=== PATIENT | female | born 1980 | race Asian ===

== ENCOUNTER 2016-10-25 12:53 | Inpatient (IN) | payer OTHER ==
[2016-10-24 14:16] VITALS: BMI 36.9
[2016-10-25] VITALS (15 sets, daily range): BP systolic 99–124; BP diastolic 46–71; PULSE 90–108; RESP 10–23; Ht 162.6 cm; Wt 88.0 kg
[~2016-10-25] VITALS: Ht 162.6 cm; Wt 88.0 kg
[~2016-10-25 12:53] MED LIST: CEFAZOLIN 1 GM INJ ONE; CEFAZOLIN 1 GM/50 ML (PMX) 50 ML IVPB SCH; CEFAZOLIN 2 GM/50 ML (PMX) 50 ML IVPB SCH; D5-NS + KCL 20 MEQ 1,000 ML IV SCH; LISI10TA2 PO; Metronidazole 500 MG in NS 100 ML IVPB SCH; SIMV5TAB50 PO
[2016-10-25] MEDS ORDERED: VASOPRESSIN 20 UNITS INJ ONE (14:35)
[2016-10-25] MEDS ORDERED: METHYLENE BLUE 10 MG/ML VIAL ONE (14:35)
--- NOTE | 2016-10-25 14:51 | HP ---
Date/Time of Note Date/Time of Note DATE: 10/25/16 TIME: 14:50 Assessment/Plan VTE Prophylaxis VTE Prophylaxis Intervention: SCD's Lines/Catheters IV Catheter Type (from Nrs): Peripheral IV HPI/ROS Admit Date/Time Admit Date/Time Oct 25, 2016 at 12:53 ROS Janeth Quach M.D> [facility] History and Physical Examination Kyra Noriega Oct 25, 2016 Age:36 :1980 Physicians: Russian Language Professor Leak Inspector Oncologist Referring MD: Ben Christie History of the Present Illness: This is a 36 female with a Atypical hyperplasia suggestive of Adenocarcinoma ,Grade 1 recently diagnosed by d/c endometrial biopsy. Medical history/ROS: all other systems unremarkable. G 2 P 3 Ab 0 Preg # 1 (twins) Preg # 2 Surgical history: CS x1. Medications: 10/08/16 Flagyl 250 mg tablet 1 tablet by mouth as directed 1 po qd x 2 days simeon 10/08/16 Golytely 236 gram-22.74 gram-6.74 gram-5.86 gram oral solution 1 mL by mouth as directed begin bowel prep at 10am 10/08/16 Levaquin 250 mg tablet 1 tablet by mouth as directed 1 po qd x 2 days simeon 08/15/16 lisinopril 10 mg tablet 1 tablet by mouth DAILY 10/08/16 [place] 5 mg-325 mg tablet 1 tablet by mouth Q8h SEE ATTACHED HARD COPY RX 08/15/16 simvastatin 20 mg tablet 1 tablet by mouth DAILY gardisil Colonoscopy Allergies: No active allergies recorded Family History: Noncontributory Social History: Noncontributory Review of Systems: Negative except for above noted Physical Examination Vitals (10/21/2016): Weight 198, Height 63.25, BP 120/80, BMI 35.1. General: Alert. HEENT: Pupils are equal, round, reactive to light and accommodation. Neck: Supple with no masses of lymphadenopathy. Breast: Deferred due to recent examination and responsibility of primary care physician. Chest: Clear to auscultation and percussion with no rales, ronchi, or wheeze. Heart: Normal rhythm with no murmur. Abdominal exam: nontender, nondistended, no masses, no ascites. location: N/A Pelvic exam: Uterus enlarged and globular, no masses or cul-de-sac nodularity noted Rectal: confirmatory with pelvic exam. Neurological: Grossly intact Assessment: endomtrial cancer stage to be determined Plan: TLH possible USO or BSO and sentinel LND possible lapartotomy. All risks and benefits of this procedure have been discussed in detail with the patient, as well as alternative treatment strategies and their implications. The patient is aware that there is some possibility of a blood transfusion and its associated risks and benefits. She wishes to proceed and gives her informed consent. Janeth Quach M.D. PMH/Family/Social Social History Smoking Status: Never smoker Exam/Review of Systems Vital Signs Vitals Vital Signs Date Time Temp Pulse Resp B/P Pulse Ox O2 Delivery O2 Flow Rate FiO2 10/25/16 13:59 98.2 95 20 124/71 100 Medications Medications Current Medications Potassium Chloride/Dextrose/ Sod Cl 1,000 ml @ 100 mls/hr Q10H IV ; Start 10/25 at 07:00; Stop 10/25/16 at 16:59 Metronidazole 100 ml @ 100 mls/hr PREOP IVPB ; Start 10/25/16 at 07:00; Stop at 15:00 Cefazolin Sodium/ Dextrose (Ancef 2 Gm/50 ml (Pmx)) 50 ml @ 100 mls/hr PREOP IVPB ; Start 10/25/16 at 07:00; Stop 10/25/16 at 15:00 JANETH QUACH MD Oct 25, 2016 14:51
--- NOTE | 2016-10-25 14:52 | HPN ---
Date/Time of Note Date/Time of Note DATE: 10/25/16 TIME: 14:51 Interval H&P Admission Note Pt. seen H&P reviewed: Systems changes noted below JANETH QUACH MD Oct 25, 2016 14:52
[2016-10-25] MEDS ORDERED: PROPOFOL 100 ML ONE (14:54)
[2016-10-25] MEDS ORDERED: ROCURONIUM 50 MG INJ ONE (14:54)
[2016-10-25] MEDS ORDERED: MIDAZOLAM 1 MG/ML 2 ML INJ ONE (14:54)
[2016-10-25] MEDS ORDERED: ROPIVACAINE 0.2% 20 ML VIAL ONE (16:16)
[2016-10-25] MEDS ORDERED: morphine SULFATE/PF (10 MG/10 ML) INJ ONE (16:16)
[2016-10-25] MEDS ORDERED: THROMBIN 5000 UNIT VIAL ONE (16:24)
[2016-10-25] MEDS ORDERED: HYDROmorphONE 1 MG/ML SYG IV PRN ×2 (18:00)
[2016-10-25] MEDS ORDERED: NALOXONE (0.4 MG/ML) INJ IV PRN (18:00)
[2016-10-25] MEDS ORDERED: hydrALAzine 20 MG INJ IV PRN (18:00)
[2016-10-25] MEDS ORDERED: NALBUPHINE HCL (10 MG/1 ML) INJ IV PRN (18:00)
[2016-10-25] MEDS ORDERED: METOCLOPRAMIDE 10 MG INJ IV PRN (18:00)
[2016-10-25] MEDS ORDERED: DIPHENHYDRAMINE 50 MG INJ IV PRN ×2 (18:00)
[2016-10-25] MEDS ORDERED: ONDANSETRON 4 MG INJ IV PRN ×3 (18:00→21:00)
[2016-10-25] MEDS ORDERED: morphine (1 MG/ML) 10ML SYRINGE IV PRN ×3 (18:00)
[2016-10-25] MEDS ORDERED: LABETALOL HCL 20MG INJ IV PRN (18:00)
[2016-10-25] MEDS ORDERED: morphine 4 MG/ML VIAL IV PRN (18:00)
[2016-10-25] MEDS ORDERED: EPHEDrine SULFATE 50 MG/5 ML SYG IV PRN (18:00)
[2016-10-25] MEDS ORDERED: HYDROmorphONE (0.2 MG/ML) 10ML SYG IV PRN ×3 (18:00)
[2016-10-25] MEDS ORDERED: morphine 2 MG INJ IV PRN ×2 (18:00→21:00)
[2016-10-25] MEDS ORDERED: MEPERIDINE 25 MG INJ IV PRN (18:00)
[2016-10-25] MEDS ORDERED: ONDANSETRON 4 MG INJ ONE (18:05)
[2016-10-25] MEDS ORDERED: METOCLOPRAMIDE 10 MG INJ ONE (18:05)
[2016-10-25] MEDS ORDERED: DEXAMETHASONE 4 MG/ML 1 ML INJ ONE (18:05)
[2016-10-25] MEDS ORDERED: NEOSTIGMINE 3 MG/3 ML SYRINGE ONE (19:04)
[2016-10-25] MEDS ORDERED: GLYCOPYRROLATE 0.4 MG INJ ONE (19:04)
[2016-10-25] MEDS ORDERED: FUROSEMIDE 20 MG INJ ONE (19:32)
[2016-10-25 20:25] LABS: ADD UMIC YES; URINE BILIRUBIN (Dip) NEGATIVE (NEGATIVE); URINE BLOOD (Dip) 2+ (NEGATIVE); URINE COLOR LT. YELLOW (YELLOW); URINE GLUCOSE (Dip) NEGATIVE (NEGATIVE); URINE KETONES (Dip) NEGATIVE (NEGATIVE); URINE LEUKOCYTE ESTERASE (Dip) NEGATIVE (NEGATIVE); URINE NITRITE (Dip) NEGATIVE (NEGATIVE); URINE TOTAL PROTEIN (Dip) NEGATIVE (NEGATIVE); URINE UROBILINOGEN (Dip) 0.2 E.U./dL (0.1-1.0)
[2016-10-25 20:37] LABS: SQUAMOUS EPITHELIAL CELL,UR RARE
[2016-10-25] MEDS: KETOROLAC 30 MG INJ IV SCH (21:00)
[2016-10-25] MEDS ORDERED: DEXTROSE 5% IV SCH (23:00)
[2016-10-25] MEDS ORDERED: POTASSIUM CHLORIDE IV SCH (23:00)
[2016-10-25] MEDS ORDERED: [UNRECOGNIZED DRUG - OTHER] IV SCH (23:00)
[2016-10-25] MEDS: CEFAZOLIN 1 GM/50 ML (PMX) 50 ML IVPB SCH (23:11)
[2016-10-26] MEDS: KETOROLAC 30 MG INJ IV SCH ×4 (03:00→20:42)
[2016-10-26] MEDS: HYDROCODONE/APAP (5/325) TAB PO PRN ×2 (05:01→14:13)
[2016-10-26 05:33] LABS: ADD SCAN DIFF NO
[2016-10-26 05:52] LABS: BASOPHILS % 0.1 % (0.0-2.0); HEMATOCRIT 38.4 % (37.0-47.0); HEMOGLOBIN 12.1 g/dl (12.0-16.0); LYMPHOCYTES # 1.9 10^3/ul (0.8-2.9); LYMPHOCYTES % 11.9 % (15.0-51.0); MEAN CORPUSCULAR HEMOGLOBIN 26.4 pg (29.0-33.0); MEAN CORPUSCULAR HGB CONC 31.5 g/dl (32.0-37.0); MEAN CORPUSCULAR VOLUME 83.7 fl (82.0-101.0); MEAN PLATELET VOLUME 10.4 fl (7.4-10.4); MONOCYTE # 1.1 10^3/ul (0.3-0.9); MONOCYTES % 6.7 % (0.0-11.0); NEUTROPHIL # 12.9 10^3/ul (1.6-7.5); NEUTROPHILS % 80.8 % (39.0-77.0); PLATELET COUNT 380 10^3/UL (140-415); RED BLOOD COUNT 4.59 10^6/ul (4.20-5.40); RED CELL DISTRIBUTION WIDTH 13.3 % (11.5-14.5); WHITE BLOOD COUNT 15.9 10^3/ul (4.8-10.8)
[2016-10-26] MEDS: CEFAZOLIN 1 GM/50 ML (PMX) 50 ML IVPB SCH ×2 (05:52→14:14)
[2016-10-26 05:58] LABS: CREATININE 0.65 mg/dl (0.44-1.00)
[2016-10-26 05:59] LABS: CALCIUM 8.2 mg/dl (8.4-10.2)
[2016-10-26] MEDS: [UNRECOGNIZED DRUG - OTHER] IV SCH ×2 (06:00→15:42)
[2016-10-26] MEDS: POTASSIUM CHLORIDE IV SCH ×2 (06:00→15:42)
[2016-10-26] MEDS: DEXTROSE 5% IV SCH ×2 (06:00→15:42)
[2016-10-26 07:39] VITALS: BP 113/66; RESP 16
--- NOTE | 2016-10-26 09:53 | CONS ---
DATE OF ADMISSION: 10/25/2016 DATE OF CONSULTATION: 10/26/2016 TIME: 6 A.M. REASON FOR CONSULTATION: Medical management. HISTORY OF PRESENT ILLNESS: The patient is a 36-year-old female with history of atypical hyperplasi a suggestive of adenocarcinoma, grade I, recently diagnosed via endometrial biopsy. The patient has a history of dyslipidemia, on a statin, and hypertension, on an HOLLY inhibitor. The patient was adm itted by Dr. Kimble for endometrial cancer staging. The patient had a hysterectomy with either a bilateral salpingo-oophorectomy or unilateral. Operative report is not up yet so it is unclear. Cu rralberto pathology for staging is pending. The patient is doing well postoperatively. She states th at her pain is being managed. PAST MEDICAL HISTORY: Hypertension, dyslipidemia, as well as atypical hyperplasia suggestive of ashish nocarcinoma diagnosed by endometrial biopsy. PAST SURGICAL HISTORY: Endometrial biopsy and . HOME MEDICATIONS: 1. Simvastatin. 2. Lisinopril. ALLERGIES: NO KNOWN DRUG ALLERGIES. FAMILY HISTORY: Sister with recently diagnosed breast cancer who at the age of 50 from stage IV breast cancer. Also hypertension in the family. SOCIAL HISTORY: Denies any alcohol, tobacco, or drug abuse. REVIEW OF SYSTEMS: A 12-point review of systems negative except for that stated in the HPI. The patient also states that she had swelling in her left jaw and was told that there is a fluid col lection there and states that it is improved. PHYSICAL EXAMINATION: VITAL SIGNS: Temperature is 98.7, pulse is 102, respiratory rate is 19, BP is 107/55, saturation 94 % on 2 liters. GENERAL: No acute distress, alert and oriented. HEENT: Normocephalic, atraumatic. NEK: No lymphadenopathy noted. LUNGS: Clear to auscultation. CARDIOVASCULAR: Tachycardic. ABDOMEN: Nondistended, soft. EXTREMITIES: No clubbing, cyanosis, or edema. LABORATORIES: White count 15.9, hemoglobin 7.1, platelets are 380. Chemistry within normal limits. Calcium is slightly low at 8.2. UA is within normal limits. Hemoglobin is slightly elevated at 2 +. ASSESSMENT AND PLAN: 1. Atypical hyperplasia suggestive of adenocarcinoma, now status post hysterectomy, plus possible u nilateral versus bilateral salpingo-oophorectomy. Operative note is not up yet so it is unclear if both ovaries were removed or just 1. Pathology is pending. Defer further workup for this to Dr. Juan Ramon dela cruz. Of note, the patient's sister recently from a stage IV breast cancer. It was re commended to obtain a mammogram and an analysis for BRCA 1 mutation. The patient may also benefit f rom BRCA 2 gene mutation analysis, but as she is currently being tentative for her endometrial cance r, would defer any gene mutation analysis of the BRCA 1 to her PCP and oncologist. 2. Hypertension. BP is currently low. Will hold the patient's home HOLLY inhibitor. 3. History of dyslipidemia. Will hold statin at this time. 4. Prophylaxis. SCDs. Dictated By: JESSE BREWER MD BS/NTS Conf#: [id number] DID#: [id number]
[2016-10-26 19:36] VITALS: BP 100/59; RESP 16
--- NOTE | 2016-10-26 22:40 | OPR ---
Date/Time of Note Date/Time of Note DATE: 10/26/16 TIME: 22:39 Operative Report Preoperative Diagnosis 4 OPERATIVE REPORT [facility] Name: Kyra Anderson Date: 10/25/26 Preoperative Diagnosis: Endometrial hyperplasia complex with atypia and suggestive of Grade 1 adenocarcinoma Postoperative Diagnosis: Same: final pathology pending Procedures: 1- Total laparoscopic hysterectomy with bilateral salpingectomy 2- Bilateral ureteral dissection with repositioning 3- Laparoscopic sentinel pelvic and aortic lymph node dissection 4- extensive enterolysis and cytolysis 5- Cystotomy repair Surgeon: Dr. Kimble Consultant Intern: Dr. Mercado Anaesthesia: General with regional Indications for Procedure: This 36- year old patient had endometrial hyperplasia and probable Grade 1 endometrial cancer preoperatively and after discussions of options with risks and benefits it was determined that a laparoscopic hysterectomy with bilateral salpingoophorectomy and sentinal pelvic/aortic lymph node dissection would be completed for the purposes of treatment and possibly planning additional adjuvant therapy if needed. The sentinal pelvic and LND was performed in lieu of the frozen section not being more that 80% reliable in determining presence of cancer; therefore selective staging is performed to determine postoperative management and avoid re- operation unless there is a significant contraindication. Name: Grant Anderson Intraoperative Findings and Summary of Procedure: After placing the Trocars and exploration we noted an enlarged fibroid and globular uterus with significant adhesions of the adnexia to the sidewalls and a right 3-cm tubal cyst. The TLH/BS was then performed without incident but required a ureteral dissection due to anatomic issues of the adnexia adherent to the sidewalls and an enlarged uterus after which the laparoscopic sentinel LND was performed with a finding of grossly negative nodes pathology pending. Findings and Procedure: After being prepped and draped in the usual manner the cervix was injected with methylene blue and an EEA sizer and balloon was placed against the cervix. A 5- millimeter trocar was then placed cephlad to the umbilicus without incident. Subsequently, we insufflated and placed two 12- millimeter trocars laterally and a 12 millimeter trocar suprapubically, as well as an additional 5-mm trocar cephlad to the umbilicus. At this time multiple pelvic adhesions were lysed with sharp dissection and the Omni if not adjacent to serosa as the adhesions were extensive. Subsequently we explored and noted an enlarged and globular uterus with a suggestion of fibroids and it was globular and deformed anterior , with adnexia adherent to the sidewalls due to apparent inflammation and old scar tissue with a 3-cm right paratubal cyst. Following bilateral sidewall enterolysis, the right round ligament was cauterized and transected with the Thunderbeat and the retroperitoneal space further opened parallel to the IP ligament an laterally with the same devise. The right ureter was identified and due to the aforementioned distortion from adherent adnexia and uterine enlargement was dissected laterally with the Omni and the endo-dissector throughout the length of the ureter and lateralized. After lateralizing the ureter the uterine artery was identified and clipped lateral to the ureter. Hence, the right fallopian tube was dissected from the mesentery with the Thunderbeat and a space was developed the broad ligament and the right remnant of triple pedicle was cauterized and transected with a Thunderbeat Name: Kyra Peñaloza after which the uterus was retracted medially and the bladder flap was partly developed with the Omni although it was very adherent to the fundus. We then used a 10-mm grasper placed through the 12-mm suprapubic trocar to manipulate the uterus and with the EEA sizer the uterus was retracted and left round ligament was cauterized and transected with the Thunderbeat and the retroperitoneal space further opened parallel to the IP ligament an laterally with the same devise. The left ureter was identified and due to the aforementioned distortion was dissected laterally with the Omni and the endo- dissector as done contralaterally. After lateralizing the ureter the uterine artery was identified and clipped lateral to the ureter. Subsequently, the fallopian tube was removed from the mesentery with the Thunderbeat and removed and a space was developed in the broad ligament and the left remainder of the triple pedicle was cauterized and transected with a Thunderbeat after which the uterus was retracted medially, allowing development or the bladder flap further with the Omni and blunt dissection. Subsequently, the right uterine artery was transected with a Thunderbeat perpendicular to the distal lower uterine segment and the Cardinal ligament and utero-sacral ligament were both transected with an Omni parallel to the lower uterine segment and cervix. An identical series of steps were taken on the left side. The integrity of the bladder was confirmed by instillation of methylene blue. The anterior and posterior colpotomies were accomplished with a Thunderbeat anteriorly and posteriorly, and continued around the sides with the Omni as the specimen was removed through the vagina uneventfully. The vagina was closed with interrupted 0- vicryl and continuous 2-0 v-lock suture with a fan used to retract the bladder due to the anatomic distortion. The integrity of the bladder was investigated again by instillation of methylene blue and a small 1- mm anterior central defect was noted far from the suture line, uncertain whether the bladder was thinned out due to the and scar tissue but intact until a retractor was needed for exposure or other subsequent issue despite being intact earlier. Hence, the defect was repaired with a double continuous layer of dyed 3-0 Vicryl suture used to complete the repaired without incident. The integrity of the bladder Name: Kyra Peñaloza was confirmed by instillation of methylene blue, 250 ml with no leakage at all. Subsequently a fan retractor was used for exposure and secured to the Kapil arm and all appropriate lymph node tissue adjacent to the right pelvic vessels were removed with sharp and blunt dissection, using the Gyrus bipolar cutting forceps or [facility] bipolar Omni for hemostasis and lymphostasis. The jaylen tissue was grasped and subsequently placed under tractions with the Omni and the Gyrus bipolar cutting forceps then being used for the hemostasis and lymphostasis in the process of removal. The dissection was continued to include any jaylen tissue adjacent to the common iliac vessels as well as distal aortic. The fan retractors were adjusted in that a suprapubically placed fan retracted the broad ligament and ureter with ileum while the right lateral trocar was used for a fan to retract the cecum and ascending colon allowing any discolored blue jaylen tissue adjacent to the vena cava, as well as aorto-caval nodes to be removed using identical technique. Repairer Shoe Sticks vessels were addressed with the Gyrus bipolar cutting forceps or Gyrus bipolar Omni. At this time we placed the fan retractors for contralateral exposure. Subsequently, any discolored or suspicious` lymph node tissue adjacent to the left pelvic vessles were removed with sharp and blunt dissection, the Gyrus bipolar cutting forceps or Gyrus bipolar Omni for hemostasis and lymphostasis, with a technique identical to the right side including hypogastric and obturator jaylen tissue. The dissection was continued to include jaylen tissue adjacent to the common iliac vessels. Subsequently, the fan retractors were adjusted and any blue jaylen tissue adjacent to the aorta were dissected using similar technique. After irrigating and assuring hemostasis the 12 millimeter trocars were removed and the fascia was closed with 0-vicryl using an endo-close devise. The gas was removed and the skin of all sites then closed with interrupted 5-0 Plain Gut. The EBL was 100cc and the patient tolerated the procedure well and left the OR in good condition. Janeth Kimble M.D. JANETH KIMBLE MD Oct 26, 2016 22:40
--- NOTE | 2016-10-26 22:44 | PN ---
Date/Time of Note Date/Time of Note DATE: 10/26/16 TIME: 22:40 Assessment/Plan VTE Prophylaxis VTE Prophylaxis Intervention: SCD's Lines/Catheters IV [facility]ter [facility] (from [facility] Peripheral IV Urinary Cath still in place: Yes Assessment/Plan Chief Complaint/Hosp Course endometrial hyperplasia and cancer Problems: Assessment/Plan A- doing well P- adv diet further a.m. Discussed surgery in detail Possibly discharge tomorrow Subjective 24 Hr Interval Summary Free Text/Dictation S- + flatus and marginally OOB O- Resp- clear CVS- NSR Abd- soft NT Ext- NT no edema A- doing well P- adv diet further a.m. Discussed surgery in detail Possibly discharge tomorrow Exam/Review of Systems Vital Signs Vitals Vital Signs Date Time Temp Pulse Resp B/P Pulse Ox O2 Delivery O2 Flow Rate FiO2 10/26/16 19:36 98.0 81 16 100/59 100 10/26/16 08:00 Nasal Cannula 2.0 Intake and Output 10/25/16 10/25/16 10/26/16 15:00 23:00 07:00 Intake Total 2200 ml 800 ml Output Total 1300 ml 1880 ml Balance 900 ml -1080 ml Results Result Diagram: 10/26/16 0440 10/26/16 0440 Results 24 hrs Laboratory Tests Test 10/26/16 04:40 Anion Gap 14 Basophils # 0.0 Basophils % 0.1 Blood Urea Nitrogen 8 Calcium Level 8.2 L Carbon Dioxide Level 30 Chloride Level 100 Creatinine 0.65 Eosinophils # 0.0 Eosinophils % 0.0 Glucose Level 151 Hematocrit 38.4 Hemoglobin 12.1 Lymphocytes # 1.9 Lymphocytes % 11.9 L Mean Corpuscular Hemoglobin 26.4 L Mean Corpuscular Hemoglobin Concent 31.5 L Mean Corpuscular Volume 83.7 Mean Platelet Volume 10.4 Monocytes # 1.1 H Monocytes % 6.7 Neutrophils # 12.9 H Neutrophils % 80.8 H Nucleated Red Blood Cells # 0.0 Nucleated Red Blood Cells % 0.0 Platelet Count 380 Potassium Level 4.0 Red Blood Count 4.59 Red Cell Distribution Width 13.3 Sodium Level 140 White Blood Count 15.9 H Medications Medications Current Medications Ondansetron HCl (Zofran Inj) 4 mg Q6H PRN IV NAUSEA AND/OR VOMITING; Start 07/01 at 18:00 Naloxone HCl 0.2 mg 0.2 mg Q2M PRN IV FOR RESP RATE 8 OR LESS; Start 10/25/16 at 18:00 Potassium Chloride 30 meq/ Dextrose/Lactated Ringer's 1,015 ml @ 100 mls/hr Q10H9M IV Last administered on 10/25/16 23:25; Admin Dose 100 MLS/HR; Start at 23:00; Stop 10/26/16 at 06:00 Potassium Chloride/Dextrose/ Lactated Ringer's (KCl/D5-Lr) 1,015 ml @ 60 mls/ hr [id number] IV Last administered on 10/26/16 15:42; Admin Dose 60 MLS/HR; Start 10/26/16 at 06:00 Acetaminophen/ Hydrocodone Bitart ([place] (5/325)) 1 tab Q6H PRN PO PAIN Last administered on 10/26/16 14:13; Admin Dose 1 TAB; Start 10/25/16 at 21:00 Ketorolac Tromethamine (Toradol) 30 mg Q6H IV Last administered on 10/26/16 20 :42; Admin Dose 30 MG; Start 10/25/16 at 21:00; Stop 10/27/16 at 03:01 Morphine Sulfate (morphine) 2 mg Q3H PRN IV SEVERE PAIN; Start 10/25/16 at 21: 00 Ondansetron HCl 4 mg 4 mg Q6H PRN IV NAUSEA AND/OR VOMITING; Start 10/25/16 at 21:00 Cefazolin Sodium (Ancef 1 Gm/50 ml (Pmx)) 50 ml @ 100 mls/hr Q8H IVPB Last administered on 10/26/16 14:14; Admin Dose 100 MLS/HR; Start 10/25/16 at 21:00 ; Stop 10/26/16 at 13:29 JANETH QUACH MD Oct 26, 2016 22:43
[2016-10-27] MEDS: KETOROLAC 30 MG INJ IV SCH (03:20)
[2016-10-27 06:36] LABS: BASOPHILS % 0.4 % (0.0-2.0); EOSINOPHILS # 0.1 10^3/ul (0.0-0.5); EOSINOPHILS % 0.6 % (0.0-7.0); HEMOGLOBIN 10.9 g/dl (12.0-16.0); LYMPHOCYTES # 2.5 10^3/ul (0.8-2.9); MEAN CORPUSCULAR HEMOGLOBIN 27.1 pg (29.0-33.0); MEAN CORPUSCULAR HGB CONC 33.1 g/dl (32.0-37.0); MEAN CORPUSCULAR VOLUME 81.9 fl (82.0-101.0); MEAN PLATELET VOLUME 8.9 fl (7.4-10.4); MONOCYTES % 9.1 % (0.0-11.0); NEUTROPHIL # 7.1 10^3/ul (1.6-7.5); NEUTROPHILS % 66.9 % (39.0-77.0); PLATELET COUNT 274 10^3/UL (140-440); RED BLOOD COUNT 4.03 10^6/ul (4.20-5.40); RED CELL DISTRIBUTION WIDTH 13.9 % (11.5-14.5); UNCORRECTED WBC 10.7 10^3/ul (4.8-10.8); WHITE BLOOD COUNT 10.7 10^3/ul (4.8-10.8)
[2016-10-27 06:38] LABS: CONDITION 1; LH ANALYZER COMMENTS 1
[2016-10-27 07:13] LABS: POTASSIUM 3.7 mmol/L (3.5-5.1)
[2016-10-27 07:17] LABS: CALCIUM 8.1 mg/dl (8.4-10.2)
[2016-10-27 07:27] LABS: CREATININE 0.6 mg/dl (0.44-1.00)
[2016-10-27 07:33] VITALS: BP 107/66; RESP 15
[2016-10-27] MEDS: HYDROCODONE/APAP (5/325) TAB PO PRN ×2 (09:22→15:48)
[2016-10-27] MEDS: [UNRECOGNIZED DRUG - OTHER] IV SCH (09:24)
[2016-10-27] MEDS: DEXTROSE 5% IV SCH (09:24)
[2016-10-27] MEDS: POTASSIUM CHLORIDE IV SCH (09:24)
--- NOTE | 2016-10-27 10:39 | PN ---
DATE: 10/27/2016 INTERNAL MEDICINE FOLLOWUP SUBJECTIVE: Chart reviewed. Surgical findings noted. Currently, the patient is hemodynamically st able on 2 liters O2 nasal cannula, saturating 100%. OBJECTIVE: VITAL SIGNS: Blood pressure 107/66, pulse 81, respirations 15, temperature 98.7. HEENT: Pupils are equal and reactive to light. Anicteric sclerae. NECK: Supple, no JVD noted, no cervical adenopathy noted, no carotid bruits heard. LUNGS: Fair breath sounds bilaterally. CARDIOVASCULAR: S1, S2 normal. ABDOMEN: Soft, positive bowel sounds. EXTREMITIES: No clubbing or cyanosis noted. NEUROLOGICAL: Awake. LABORATORY DATA: WBC 10.7, hemoglobin 10.9, hematocrit 33, platelets 274. Sodium 141, potassium 3. 7, chloride 101, CO2 31, BUN 6, creatinine 0.6, glucose 108. IMPRESSION: 1. Adenocarcinoma uterine status post laparoscopic hysterectomy and bilateral salpingo-oophorectomy along with ureteral diversion. 2. History of hypertension. 3. History of dyslipidemia. RECOMMENDATIONS: 1. Continue postop care. 2. Advance diet as per surgery. 3. Possible discharge planning in a.m. Dictated By: DIVINE FREEMAN MD, MA/IDALMIS Conf#: [id number] DID#: [id number]
== END 2016-10-27 18:30 | disposition home or self-care (01) | DRG 743 ==
LOC: REC 12:53 → INTOOBSV 12:53 → MS1 21:00 → OBSVTOIN 10-26 08:04 → MS1 10-26 17:39
PROC: 0UTC4ZZ Resection of Cervix, Percutaneous Endoscopic Approach (ICD-10-PCS; 2016-10-25)
PROC: 0UB74ZZ Excision of Bilateral Fallopian Tubes, Percutaneous Endoscopic Approach (ICD-10-PCS; 2016-10-25)
PROC: 07BC4ZX Excision of Pelvis Lymphatic, Percutaneous Endoscopic Approach, Diagnostic (ICD-10-PCS; 2016-10-25)
PROC: 07BD4ZX Excision of Aortic Lymphatic, Percutaneous Endoscopic Approach, Diagnostic (ICD-10-PCS; 2016-10-25)
PROC: 0TS84ZZ Reposition Bilateral Ureters, Percutaneous Endoscopic Approach (ICD-10-PCS; 2016-10-25)
PROC: 0TQB4ZZ Repair Bladder, Percutaneous Endoscopic Approach (ICD-10-PCS; 2016-10-25)
PROC: 0UT94ZZ Resection of Uterus, Percutaneous Endoscopic Approach (ICD-10-PCS; principal; 2016-10-25 14:30)
DX: N85.02 Endometrial intraepithelial neoplasia [EIN] (principal); N32.89 Other specified disorders of bladder; I10 Essential (primary) hypertension; E78.5 Hyperlipidemia, unspecified
CPT/HCPCS: 80048; 81001; 81003; 84703; 85025; 86850; 86900; 86901; 86920; 88302; 88305; 88307; 99217; J1940; G0378; J0690; J1100; J1170; J1200; J1644; J1885; J2175; J2250; J2274; J2405; J2710; J2765; J2795; J3010; J7121

== ENCOUNTER 2016-10-31 17:27 | Inpatient (IN) | payer OTHER ==
[~2016-10-31] VITALS: Ht 162.6 cm; Wt 88.6 kg
[~2016-10-31 17:27] MED LIST changes: -CEFAZOLIN 1 GM INJ ONE; -CEFAZOLIN 1 GM/50 ML (PMX) 50 ML IVPB SCH; -CEFAZOLIN 2 GM/50 ML (PMX) 50 ML IVPB SCH; -D5-NS + KCL 20 MEQ 1,000 ML IV SCH; -Metronidazole 500 MG in NS 100 ML IVPB SCH
[2016-10-31] MEDS ORDERED: SOD CHLORIDE 0.9% IV ONE (19:00)
--- NOTE | 2016-10-31 19:17 | RADRPT ---
PROCEDURE: XR Chest. CLINICAL INDICATION: Shortness of breath. TECHNIQUE: Portable AP semi erect view of the chest was obtained. COMPARISON: None. FINDINGS: The cardiomediastinal silhouette is within normal limits. The lungs are clear. There is no evidenc e for pleural effusion, pneumothorax or pulmonary vascular congestion. The osseous structures are i ntact with no evidence for acute abnormality. RPTAT:HJJR IMPRESSION: No evidence for acute intrathoracic pathology. Physician Angelita Date Time Electronically viewed and signed by Marcus Batres Physician on 10/31/2016 19:17 /
[2016-10-31] MEDS ORDERED: IBUPROFEN 800 MG TAB PO ONE (19:30)
[2016-10-31 19:38] LABS: HEMATOCRIT 36.9 % (37.0-47.0); HEMOGLOBIN 12.2 g/dl (12.0-16.0); MEAN CORPUSCULAR HEMOGLOBIN 26.8 pg (29.0-33.0); MEAN CORPUSCULAR HGB CONC 33.1 g/dl (32.0-37.0); MEAN CORPUSCULAR VOLUME 81.2 fl (82.0-101.0); MEAN PLATELET VOLUME 8.2 fl (7.4-10.4); PLATELET COUNT 370 10^3/UL (140-440); RED BLOOD COUNT 4.55 10^6/ul (4.20-5.40); RED CELL DISTRIBUTION WIDTH 14.4 % (11.5-14.5); UNCORRECTED WBC 27.4 10^3/ul (4.8-10.8); WHITE BLOOD COUNT 27.4 10^3/ul (4.8-10.8)
[2016-10-31 19:40] LABS: CONDITION 1; LH ANALYZER COMMENTS 1; SUSPECT 1
[2016-10-31 19:51] LABS: ALBUMIN 3.7 g/dl (3.3-4.9); POTASSIUM 3.4 mmol/L (3.5-5.1)
[2016-10-31 19:53] LABS: BILIRUBIN,INDIRECT 0.8 mg/dl (0-1.1); BILIRUBIN,TOTAL 0.8 mg/dl (0.2-1.3); CREATININE 0.6 mg/dl (0.44-1.00)
[2016-10-31 19:54] LABS: ALBUMIN/GLOBULIN RATIO 0.97; CALCIUM 8.6 mg/dl (8.4-10.2); TOTAL PROTEIN 7.5 g/dl (6.1-8.1)
[2016-10-31] MEDS ORDERED: IOHEXOL 350MG/ML 50 ML BTL ONE (20:22)
[2016-10-31] MEDS ORDERED: IOHEXOL 100 ML ONE (20:22)
[2016-10-31] MEDS ORDERED: SOD CHLORIDE 0.9% 100 ML ONE (20:22)
--- NOTE | 2016-10-31 20:59 | RADRPT ---
PROCEDURE: CTA Chest. CLINICAL INDICATION: Chest pain and shortness of breath TECHNIQUE: Continues 1.25 mm axial images were obtained from lung apices to the domes of diaphragm s following intravenous injection of 100 cc of Isovue 370. Images reconstructed in coronal, sagitta l, and 3-D format using maximum intensity projection technique.. The calculated dose length product (DLP) = 586.24 mGy-cm. The CTDlvol = 17.56 mGy. One or more of the following dose reduction techniq ues were used: Automated exposure control, adjustment of the mA and or KV according to patient size, or use of iterative reconstruction technique. COMPARISON: No prior studies are available for comparison. FINDINGS: Images through the pulmonary arteries demonstrates no evidence of large or central pulmonary emboli. Ascending and descending thoracic aorta are normal in caliber without aneurysmal dilatation or dis section. Heart chambers are mildly enlarged in size. There is no pericardial effusion. No patholo gically enlarged mediastinal or axillary lymph nodes are seen. There is a 2.3 cm left thyroid nodul e. Evaluation of the lung longo demonstrates no confluent pneumonia, pleural fluid, pneumothorax. No suspicious lung nodules or masses are seen. The underlying architecture of the lungs is normal. Br onchi are normal in caliber. No destructive bony lesions are seen. IMPRESSION: 1. No evidence of large or central pulmonary emboli. 2. No aortic aneurysm or dissection. 3. Lungs clear 4. 2.3 cm left lower pole thyroid nodule RPTAT: HH .Brown Cantrell MD, Date Time Electronically viewed and signed by .Brown Cantrell MD, on 10/31/2016 20:58 .W/
[2016-10-31] MEDS ORDERED: VANCOMYCIN 1 GM (PMX) 250 ML IVPB STA (21:10)
[2016-10-31] MEDS ORDERED: PIPER-TAZO 3.375 GM IV (PMX) 100 ML IVPB STA (21:10)
[2016-10-31] MEDS ORDERED: VANCOMYCIN IV PER PHARMACY XX SCH (21:30)
--- NOTE | 2016-10-31 21:52 | RADRPT ---
PROCEDURE: CT abdomen and pelvis with contrast. CLINICAL INDICATION: Fever and possible sepsis TECHNIQUE: CT scan of the abdomen and pelvis without contrast was performed on a 64-slice CT [facility] utilizing axial imaging from the lung bases through the pubis symphysis. The patient was scanned after the uneventful intravenous administration of 125 cc of Omnipaque 350 Sagittal and coronal ref ormatted images were made. CTDI vol 46.96 mGy and DLP 1421.03 mGy-cm One of the following 3 dose reduction techniques were used during this CT examination: automated exp osure control; adjustment of the mA and /or kV according to patient size; or use of iterative recons truciton technique. COMPARISON: 10/31/2016 chest x-ray FINDINGS: CT abdomen: The lung bases are remarkable for dependent discoid atelectasis. Mild cardiomegaly is present. No pericardial or pleural effusion is present. Mild diffuse fatty infiltration of the liver is present with mild hepatomegaly. The visualized spleen, pancreas, gallbladder, and bilateral adrenal glands are normal. The bilateral kidneys are normal. No evidence for hydroureteronephrosis or nephrouret erolithiasis is present. The aorta demonstrates no evidence for aneurysmal dilatation. Inflammation is noted in the retroper itoneum anterior to the aorta and extending into the pelvis. The visualized bowel demonstrates mild yuli-sigmoid inflammation. No evidence for bowel obstruction is present. No evidence for divertic ulosis or diverticulitis or appendicitis is present. No evidence for pneumoperitoneum or abdominal ascites is present. CT pelvis: Fluid is present in the pelvis in the expected location of the uterus and bilateral adnexa. This fl uid collection measures approximately 6.2 cm AP by 7.4 cm in transverse dimensions. Inflammation is present and infected seroma or abscess is not excluded. The presence of a 2.8 cm left soft tissue nodule anterior to the psoas muscle which may represent a pathologic lymph node or the left ovary. A Shrestha catheter is present in a decompressed urinary bladder which has surrounding inflammation. Mild pelvic ascites is present The surrounding osseous structures are normal. IMPRESSION: 1. Status post hysterectomy for endometrial carcinoma with pelvic fluid collection measuring 6.2 cm AP by 7.4 cm transverse with in the surgical bed. Differential to include infected seroma, abscess , or hematoma. Recommend correlation with the patient's white blood cell count and exam. 2. Mild cardiomegaly 3. Mild hepatomegaly and diffuse fatty infiltration of the liver 4. Shrestha catheter is present in a decompressed urinary bladder 5. 2.8 cm enhancing soft tissue pathologic lymph node, left ovary or mass. A call report was made to BHANU Cabrera PA-C at 10/31/2016 9:45:13 PM following the completion of the examination by the undersigned. RPTAT: HDC .Ayla óLpez MD, MD Date Time Electronically viewed and signed by .Ayla López MD, on 10/31/2016 21:52 .C/
[2016-10-31] MEDS ORDERED: PIPER-TAZO 3.375 GM IV (PMX) 100 ML IVPB ONE (22:00)
[2016-10-31 22:02] LABS: LYMPHOCYTES # 2.2 10^3/ul (0.8-2.9); MONOCYTE # 2.7 10^3/ul (0.3-0.9); NEUTROPHIL # 22.5 10^3/ul (1.6-7.5); PLATELET ESTIMATE PLT APPEAR ADEQUATE
[2016-10-31] MEDS ORDERED: ACETAMINOPHEN 325 MG TAB PO PRN (22:30)
[2016-10-31] MEDS ORDERED: ONDANSETRON 4 MG INJ IV PRN (22:30)
--- NOTE | 2016-10-31 22:48 | QN ---
Documentation Comment I have seen and evaluated the patient along with the PA and/or NUTRITION ASSISTANT provider. I agree with the evaluation and plan of care. Please see their documentation for full ER course and evaluation. In short: The patient is postop approximately 1 week status post SAMPLE BOX [employer]KER surgery. The patient presents with fever and abdominal pain. She also describes mild shortness of breath but no pleuritic pain, no calf swelling. Her SAMPLE BOX MAKER is Dr. Kimble who would like the patient admitted to the hospitalist team. On exam: The patient has a slightly protuberant abdomen with mild diffuse tenderness, tachycardia and warm to touch. Assessment and plan: The patient has Sirs criteria with source consistent with sepsis. However she has no evidence of severe sepsis. No evidence of hypotension or endorgan dysfunction, normal lactic acid. Her CT is documented below and shows evidence of intra-abdominal abscess. She was given a 30/kg bolus of saline and given vancomycin and Zosyn. Direct supervision of care with the PA was performed. The patient is otherwise well-appearing and stable for medical surgical floor. Dr. Kimble notified. He requests [facility] which has been relayed to the admitting team. At this time the patient is stable but requires inpatient hospitalization for IV antibiotics, consider IR drainage versus surgical drainage. Accepting care team and consultations: I discussed the current laboratory data, diagnostic imaging and emergency care provided. Admitting team: Dr. Linares Admitting team indication: Insurance directed Consulting services: SAMPLE BOX MAKER Dr. Kimble Diagnostic impression: Sepsis Intra-abdominal abscess Postoperative abscess AYDIN TOLBERT MD Oct 31, 2016 22:48
[2016-10-31 22:57] LABS: ADD UMIC YES; URINE BILIRUBIN (Dip) NEGATIVE (NEGATIVE); URINE BLOOD (Dip) 3+ (NEGATIVE); URINE GLUCOSE (Dip) NEGATIVE (NEGATIVE); URINE KETONES (Dip) NEGATIVE (NEGATIVE); URINE LEUKOCYTE ESTERASE (Dip) NEGATIVE (NEGATIVE); URINE NITRITE (Dip) NEGATIVE (NEGATIVE); URINE TOTAL PROTEIN (Dip) NEGATIVE (NEGATIVE); URINE UROBILINOGEN (Dip) 0.2 E.U./dL (0.1-1.0)
[2016-10-31 23:02] LABS: URINE COLOR PALE PINK (YELLOW)
[2016-10-31 23:15] LABS: SQUAMOUS EPITHELIAL CELL,UR RARE; URINE RBCS >50 /HPF (0)
[2016-10-31 23:16] LABS: BACTERIA,URINE RARE
--- NOTE | 2016-11-01 00:54 | ERA ---
ER Documentation Chief Complaint Date/Time DATE: 11/01/16 TIME: 00:45 Chief Complaint abd pain, fever, has indwelling cath, s/p recent surgery HPI 36-year-old female who is a presents to the ED with a past medical history of grade 1 adenocarcinoma and hypertension status post total hysterectomy presents to the ED complaining of a fever and chills that started last night. Patient saw Dr. Kimble, her WET PAN MIXER surgeon earlier today and was sent here due to her shortness of breath. States that she started to experience shortness of breath last night however denies any chest pain, pleuritic chest pain, dyspnea on exertion. States that she also has a catheter for 1 week due to a puncture of her bladder that was noted from a previous surgery, in [address] Kimble fixed during this recent surgery. States that she has been taking hydrocodone and 2 unknown names of antibiotics that was prescribed by Dr. Kimble. 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 Denies any nausea, vomiting, diarrhea, flank pain, dysuria, urgency, frequency, hematuria. States that her last menses was on September 29, 2016. ROS All systems reviewed and are negative except as per history of present illness. Medications Home Meds Reported Medications Simvastatin* (Simvastatin*) 5 Mg Tablet, 20 MG PO QHS, #30 TAB 10/24/16 Lisinopril* (Lisinopril*) 10 Mg Tablet, 10 MG PO DAILY, #30 TAB 10/24/16 Allergies Allergies: Coded Allergies: No Known Allergy (Unverified , 10/24/16) PMhx/Soc History of Surgery: Yes (CSECTION) Anesthesia Reaction: No Hx Neurological Disorder: No Hx Respiratory Disorders: No Hx Cardiac Disorders: Yes (HYPERTENSION AND HYPERLIPIDEMIA) Hx Psychiatric Problems: No Hx Miscellaneous Medical Probl: No Hx Alcohol Use: No Hx Substance Use: No Hx Tobacco Use: No Physical Exam Vitals Temp 102.3 Pulse 115 Resp 20 SBP 117 DBP 64 O2 Sat 99 Physical Exam Const: [id number], well-nourished. In no acute distress. Head: Atraumatic, normocephalic Eyes: Normal Conjunctiva without injection. No purulent discharge. ENT: Normal external ear, nose. Moist oropharynx without tonsillar exudates. Non -erythematous pharynx. Uvula midline. No drooling. No trismus. Neck: No cervical midline tenderness. Full range of motion. No meningismus. No cervical lymphadenopathy. No JVD. Resp: Clear to auscultation bilaterally. No wheezing, rhonchi, rales, or crackles. No accessory muscle use. No retractions. Cardio: Regular rate and rhythm. No murmurs, rubs or gallops. Abd: Protuberant abdomen with mild diffuse tenderness. Normal bowel sounds. Various well-healing surgical lacerations with tiffany noted with no signs of erythema, edema, fluctuance or induration. No palpable masses. No rebound tenderness. No guarding. Negative McBurney's point. Negative psoas sign. Negative obturator sign. Skin: No petechiae or rashes Back: No midline tenderness. No CVA tenderness. Ext: No cyanosis, or edema. Neur: Awake and alert. Normal gait. Normal coordination. Psych: Normal Mood and Affect Result Diagram: 11/06/16 0450 11/06/16 0450 Results 24 hrs Laboratory Tests Test 10/31/16 19:25 10/31/16 21:00 Alanine Aminotransferase (ALT/SGPT) 46IU/L Albumin 3.7g/dl Albumin/Globulin Ratio 0.97 Alkaline Phosphatase 86IU/L Anion Gap 16 Aspartate Amino Transf (AST/SGOT) 34IU/L Blood Morphology Comment Blood Urea Nitrogen 7mg/dl Calcium Level 8.6mg/dl Carbon Dioxide Level 23mmol/L Chloride Level 101mmol/L Creatinine 0.60mg/dl Direct Bilirubin 0.00mg/dl Giant Platelets 1+ Globulin 3.80g/dl Glucose Level 124mg/dl Hematocrit 36.9% Hemoglobin 12.2g/dl Indirect Bilirubin 0.8mg/dl Lactic Acid Level 1.0mmol/L 0.8mmol/L Lipase 24U/L Lymphocytes # 2.210^3/ul Lymphocytes % 8.0% Mean Corpuscular Hemoglobin 26.8pg Mean Corpuscular Hemoglobin Concent 33.1g/dl Mean Corpuscular Volume 81.2fl Mean Platelet Volume 8.2fl Monocytes # 2.710^3/ul Monocytes % 10.0% Neutrophils # 22.510^3/ul Neutrophils % 82.0% Platelet Count 40572^3/UL Platelet Estimate PLT APPEAR ADEQUATE Potassium Level 3.4mmol/L Red Blood Count 4.5510^6/ul Red Cell Distribution Width 14.4% Sodium Level 137mmol/L Total Bilirubin 0.8mg/dl Total Protein 7.5g/dl White Blood Count 27.410^3/ul Current Medications Medications (Trade) Dose Ordered Sig/Checo Route PRN Reason Start Time Stop Time Status Last Admin Dose Admin Sodium Chloride (NS) 2,570 ml @ 2,570 mls/hr BOLUS X1 ONCE IV 10/31/16 19:00 10/31/16 19:59 DC 10/31/16 19:32 Ibuprofen (Motrin) 800 mg ONCE ONCE PO 10/31/16 19:30 10/31/16 19:31 DC 10/31/16 19:33 IV Flush 10 ml 10 ml STK-MED ONCE .ROUTE 10/31/16 20:22 10/31/16 20:23 DC 10/31/16 20:49 Sodium Chloride 100 ml @ ud STK-MED ONCE .ROUTE 10/31/16 20:22 10/31/16 20:23 DC 10/31/16 20:49 Iohexol (Omnipaque) 100 ml @ ud STK-MED ONCE .ROUTE 10/31/16 20:22 10/31/16 20:23 DC 10/31/16 20:49 Iohexol (Omnipaque 350mg/ ml) 50 ml STK-MED ONCE .ROUTE 10/31/16 20:22 10/31/16 20:23 DC 10/31/16 20:49 Vancomycin HCl VANCOMYCIN PER PHARM... PER PROTOCOL XX 10/31/16 21:30 Piperacillin Sod/ Tazobactam Sod 100 ml @ 200 mls/hr Q8 ONCE IVPB 10/31/16 22:00 10/31/16 22:29 DC Vancomycin HCl 250 ml @ 125 mls/hr ONCE STAT IVPB 10/31/16 21:10 10/31/16 23:09 DC 10/31/16 22:55 Piperacillin Sod/ Tazobactam Sod (Zosyn 3.375gm/ 100 ml (Pmx)) 100 ml @ 200 mls/hr ONCE STAT IVPB 10/31/16 21:10 10/31/16 21:39 DC 10/31/16 21:25 Procedures/MDM This is a 36-year-old female with a past medical history of grade 1 adenocarcinoma endometrial hyperplasia and hypertension is a presents to the ED complaining of fever and tachycardia associated with shortness of breath , chills and slight abdominal pain that started last night. Patient only has a fever of 102.3 and is tachycardic at 115. Patient qualifies for sirs criteria with a consistent source of sepsis. This case was discussed with my supervising physician, Dr. Rod who also evaluated patient at this time. We both agree that patient should receive the sepsis workup occluding a CT of the abdomen and pelvis with contrast. Dr. Kimble also wanted to rule out a pulmonary embolism due to patient's shortness of breath. A CT PA was ordered to further evaluate patient. Her WET PAN MIXER is Dr. Kimble who would like the patient admitted to the hospitalist team. Patient denied wanting any pain medicines at this time. 30 ml/kg NS bolus Completed Initial Lactate: [normal] Repeat Lactate x 2 [normal] PROCEDURE: CT abdomen and pelvis with contrast. CLINICAL INDICATION: Fever and possible sepsis TECHNIQUE: CT scan of the abdomen and pelvis without contrast was performed on a 64-slice CT scanner utilizing axial imaging from the lung bases through the pubis symphysis. The patient was scanned after the uneventful intravenous administration of 125 cc of Omnipaque 350 Sagittal and coronal reformatted images were made. CTDI vol 46.96 mGy and DLP 1421.03 mGy-cm One of the following 3 dose reduction techniques were used during this CT examination: automated exposure control; adjustment of the mA and /or kV according to patient size; or use of iterative reconstruciton technique. COMPARISON: 10/31/2016 chest x-ray FINDINGS: CT abdomen: The lung bases are remarkable for dependent discoid atelectasis. Mild cardiomegaly is present. No pericardial or pleural effusion is present. Mild diffuse fatty infiltration of the liver is present with mild hepatomegaly. The visualized spleen, pancreas, gallbladder, and bilateral adrenal glands are normal. The bilateral kidneys are normal. No evidence for hydroureteronephrosis or nephroureterolithiasis is present. The aorta demonstrates no evidence for aneurysmal dilatation. Inflammation is noted in the retroperitoneum anterior to the aorta and extending into the pelvis. The visualized bowel demonstrates mild yuli-sigmoid inflammation. No evidence for bowel obstruction is present. No evidence for diverticulosis or diverticulitis or appendicitis is present. No evidence for pneumoperitoneum or abdominal ascites is present. CT pelvis: Fluid is present in the pelvis in the expected location of the uterus and bilateral adnexa. This fluid collection measures approximately 6.2 cm AP by 7.4 cm in transverse dimensions. Inflammation is present and infected seroma or abscess is not excluded. The presence of a 2.8 cm left soft tissue nodule anterior to the psoas muscle which may represent a pathologic lymph node or the left ovary. A Shrestha catheter is present in a decompressed urinary bladder which has surrounding inflammation. Mild pelvic ascites is present The surrounding osseous structures are normal. IMPRESSION: 1. Status post hysterectomy for endometrial carcinoma with pelvic fluid collection measuring 6.2 cm AP by 7.4 cm transverse with in the surgical bed. Differential to include infected seroma, abscess, or hematoma. Recommend correlation with the patient's white blood cell count and exam. 2. Mild cardiomegaly 3. Mild hepatomegaly and diffuse fatty infiltration of the liver 4. Shrestha catheter is present in a decompressed urinary bladder 5. 2.8 cm enhancing soft tissue pathologic lymph node, left ovary or mass. A call report was made to BHANU Cabrera PA-C at 10/31/2016 9:45:13 PM following the completion of the examination by the undersigned. PROCEDURE: CTA Chest. CLINICAL INDICATION: Chest pain and shortness of breath TECHNIQUE: Continues 1.25 mm axial images were obtained from lung apices to the domes of diaphragms following intravenous injection of 100 cc of Isovue 370. Images reconstructed in coronal, sagittal, and 3-D format using maximum intensity projection technique.. The calculated dose length product (DLP) = 586.24 mGy-cm. The CTDlvol = 17.56 mGy. One or more of the following dose reduction techniques were used: Automated exposure control, adjustment of the mA and or KV according to patient size, or use of iterative reconstruction technique. COMPARISON: No prior studies are available for comparison. FINDINGS: Images through the pulmonary arteries demonstrates no evidence of large or central pulmonary emboli. Ascending and descending thoracic aorta are normal in caliber without aneurysmal dilatation or dissection. Heart chambers are mildly enlarged in size. There is no pericardial effusion. No pathologically enlarged mediastinal or axillary lymph nodes are seen. There is a 2.3 cm left thyroid nodule. Evaluation of the lung longo demonstrates no confluent pneumonia, pleural fluid , pneumothorax. No suspicious lung nodules or masses are seen. The underlying architecture of the lungs is normal. Bronchi are normal in caliber. No destructive bony lesions are seen. IMPRESSION: 1. No evidence of large or central pulmonary emboli. 2. No aortic aneurysm or dissection. 3. Lungs clear 4. 2.3 cm left lower pole thyroid nodule PROCEDURE: XR Chest. CLINICAL INDICATION: Shortness of breath. TECHNIQUE: Portable AP semi erect view of the chest was obtained. COMPARISON: None. FINDINGS: The cardiomediastinal silhouette is within normal limits. The lungs are clear. There is no evidence for pleural effusion, pneumothorax or pulmonary vascular congestion. The osseous structures are intact with no evidence for acute abnormality. RPTAT:HJJR IMPRESSION: No evidence for acute intrathoracic pathology. Status post hysterectomy for endometrial carcinoma with pelvic fluid collection measuring 6.2 cm AP by 7.4 cm transverse with in the surgical bed. Differential to include infected seroma, abscess, or hematoma seen on CT ob abdomen and pelvis with contrast. Diagnostic impression: Sepsis Intra-abdominal abscess Postoperative abscess No evidence of severe sepsis. No evidence of hypotension or end organ dysfunction, normal lactic acid. She was given a 30/kg bolus of saline and given Vancomycin and Zosyn. No evidence of pneumonia, AAA, aortic dissection, pleural effusion, or pulmonary embolism. No evidence of UTI. Dr. Rod notified Dr. Kimble. He requests [facility] which has been relayed to the admitting team. The patient will be admitted for careful hydration, antibiotic therapy, and infectious source control. Patient is stable but requires inpatient hospitalization for IV antibiotics, consider IR drainage versus surgical drainage. Departure Diagnosis: Primary Impression: Postoperative intra-abdominal abscess Qualified Code: T81.4XXA - Postoperative intra-abdominal abscess, initial encounter Condition: Stable BAILEY DRUMMOND PA-C Nov 01, 2016 00:54 pelvis. The visualized bowel demonstrates mild yuli-sigmoid inflammation. No evidence for bowel obstruction is present. No evidence for diverticulosis or diverticulitis or appendicitis is present. No evidence for pneumoperitoneum or abdominal ascites is present. CT pelvis: Fluid is present in the pelvis in the expected location of the uterus and bilateral adnexa. This fluid collection measures approximately 6.2 cm AP by 7.4 cm in transverse dimensions. Inflammation is present and infected seroma or abscess is not excluded. The presence of a 2.8 cm left soft tissue nodule anterior to the psoas muscle which may represent a pathologic lymph node or the left ovary. A Shrestha catheter is present in a decompressed urinary bladder which has surrounding inflammation. Mild pelvic ascites is present The surrounding osseous structures are normal. IMPRESSION: 1. Status post hysterectomy for endometrial carcinoma with pelvic fluid collection measuring 6.2 cm AP by 7.4 cm transverse with in the surgical bed. Differential to include infected seroma, abscess, or hematoma. Recommend correlation with the patient's white blood cell count and exam. 2. Mild cardiomegaly 3. Mild hepatomegaly and diffuse fatty infiltration of the liver 4. Shrestha catheter is present in a decompressed urinary bladder 5. 2.8 cm enhancing soft tissue pathologic lymph node, left ovary or mass. A call report was made to BHANU Cabrera PA-C at 10/31/2016 9:45:13 PM following the completion of the examination by the undersigned. PROCEDURE: CTA Chest. CLINICAL INDICATION: Chest pain and shortness of breath TECHNIQUE: Continues 1.25 mm axial images were obtained from lung apices to the domes of diaphragms following intravenous injection of 100 cc of Isovue 370. Images reconstructed in coronal, sagittal, and 3-D format using maximum intensity projection technique.. The calculated dose length product (DLP) = 586.24 mGy-cm. The CTDlvol = 17.56 mGy. One or more of the following dose reduction techniques were used: Automated exposure control, adjustment of the mA and or KV according to patient size, or use of iterative reconstruction technique. COMPARISON: No prior studies are available for comparison. FINDINGS: Images through the pulmonary arteries demonstrates no evidence of large or central pulmonary emboli. Ascending and descending thoracic aorta are normal in caliber without aneurysmal dilatation or dissection. Heart chambers are mildly enlarged in size. There is no pericardial effusion. No pathologically enlarged mediastinal or axillary lymph nodes are seen. There is a 2.3 cm left thyroid nodule. Evaluation of the lung longo demonstrates no confluent pneumonia, pleural fluid , pneumothorax. No suspicious lung nodules or masses are seen. The underlying architecture of the lungs is normal. Bronchi are normal in caliber. No destructive bony lesions are seen. IMPRESSION: 1. No evidence of large or central pulmonary emboli. 2. No aortic aneurysm or dissection. 3. Lungs clear 4. 2.3 cm left lower pole thyroid nodule PROCEDURE: XR Chest. CLINICAL INDICATION: Shortness of breath. TECHNIQUE: Portable AP semi erect view of the chest was obtained. COMPARISON: None. FINDINGS: The cardiomediastinal silhouette is within normal limits. The lungs are clear. There is no evidence for pleural effusion, pneumothorax or pulmonary vascular congestion. The osseous structures are intact with no evidence for acute abnormality. RPTAT:HJJR IMPRESSION: No evidence for acute intrathoracic pathology. Accepting care team and consultations: I discussed the current laboratory data, diagnostic imaging and emergency care provided. Admitting team: Dr. Linares Admitting team indication: Insurance directed Consulting services: WET PAN MIXER Dr. Kimble Diagnostic impression: Sepsis Intra-abdominal abscess Postoperative abscess Departure Diagnosis: Primary Impression: Postoperative intra-abdominal abscess Qualified Code: T81.4XXA - Postoperative intra-abdominal abscess, initial encounter Condition: Stable BAILEY DRUMMOND PA-C Nov 01, 2016 00:54
[2016-11-01 03:05] VITALS: TEMP 98.2
[2016-11-01 03:30] VITALS: BP 104/60; RESP 18
[2016-11-01 03:37] VITALS: Ht 162.6 cm; Wt 88.6 kg
[2016-11-01] MEDS: PIPER-TAZO 3.375 GM IV (PMX) 100 ML IVPB SCH ×3 (05:42→21:20)
[2016-11-01] MEDS: ACETAMINOPHEN 325 MG TAB PO PRN ×2 (07:46→13:48)
[2016-11-01 07:58] LABS: ALBUMIN 3.4 g/dl (3.3-4.9)
[2016-11-01 07:59] LABS: POTASSIUM 3.4 mmol/L (3.5-5.1)
[2016-11-01] MEDS ORDERED: VANCOMYCIN 1.25 GM in SOD CHLORIDE 0.9% 250 ML IVPB SCH (08:00)
[2016-11-01 08:01] LABS: BILIRUBIN,INDIRECT 0.6 mg/dl (0-1.1); BILIRUBIN,TOTAL 0.6 mg/dl (0.2-1.3); CREATININE 0.61 mg/dl (0.44-1.00); TOTAL PROTEIN 6.8 g/dl (6.1-8.1)
[2016-11-01 08:02] LABS: MAGNESIUM 2.2 mg/dl (1.7-2.5); PHOSPHORUS 2.5 mg/dl (2.5-4.9)
[2016-11-01 08:09] LABS: EOSINOPHILS % 0.1 % (0.0-7.0); HEMATOCRIT 32.8 % (37.0-47.0); HEMOGLOBIN 10.9 g/dl (12.0-16.0); LYMPHOCYTES # 1.6 10^3/ul (0.8-2.9); LYMPHOCYTES % 6.5 % (15.0-51.0); MEAN CORPUSCULAR HEMOGLOBIN 27.3 pg (29.0-33.0); MEAN CORPUSCULAR HGB CONC 33.4 g/dl (32.0-37.0); MEAN CORPUSCULAR VOLUME 81.7 fl (82.0-101.0); MEAN PLATELET VOLUME 8.5 fl (7.4-10.4); MONOCYTE # 1.1 10^3/ul (0.3-0.9); MONOCYTES % 4.4 % (0.0-11.0); NEUTROPHIL # 21.4 10^3/ul (1.6-7.5); PLATELET COUNT 335 10^3/UL (140-440); RED BLOOD COUNT 4.01 10^6/ul (4.20-5.40); RED CELL DISTRIBUTION WIDTH 14.3 % (11.5-14.5)
[2016-11-01 08:24] LABS: CONDITION 1; LH ANALYZER COMMENTS 1
[2016-11-01 08:28] VITALS: BP 121/67; RESP 17
--- NOTE | 2016-11-01 08:46 | CONS ---
Date/Time of Note Date/Time of Note DATE: 11/01/16 TIME: 08:46 Consultation Date/Type/Reason Admit Date/Time Oct 31, 2016 at 22:15 Hx of Present Illness Garfield Quach M.D. [facility] History and Physical Examination Kyra Noriega Date:Oct 31, 2016 :1980 Age: 36 Physicians: [employer] Professional Oncologist Referring MD: Ben Christie History of the Present Illness: A 36 year old female with pelvic discomfort and fever s/p TLH/BSO LND. Medical history/ROS: all other systems unremarkable. Surgical history: no significant abdominal procedures. Medications: 10/31/16 Flagyl 500 mg tablet 1 tablet by mouth TID 10/31/16 Levaquin 750 mg tablet 1 tablet by mouth DAILY 08/15/16 lisinopril 10 mg tablet 1 tablet by mouth DAILY 10/08/16 Lucien 5 mg-325 mg tablet 1 tablet by mouth Q8h SEE ATTACHED HARD COPY RX 08/15/16 simvastatin 20 mg tablet 1 tablet by mouth DAILY gardisil Allergies: No active allergies recorded Family Hx: non-contributary Social HX: non-contributary ROS: as above Colonoscopy Physical Examination Vitals (10/31/2016): Weight 195, Height 63.25, BP 100/60, Temperature 100.2, BMI 34.5. General: Alert. HEENT: Pupils are equal, round, reactive to light and accommodation. Neck: Supple with no masses of lymphadenopathy. Breast: Deferred due to recent examination and responsibility of primary care physician. Chest: Clear to auscultation Heart: Normal rhythm with no murmur. Abdomen: Non tender, no ascites nor organomeglay. Pelvic exam: central fullness with cuff edema and tenderness Rectal: confirmatory with pelvic exam, no ma. Neurological: Grossly intact Assessment: 1- Cuff cell cultis possible pelvic hematoma a/o seroma infected 2- r/o PE a/o pneumonia Plan: to ER an admit, r/o PE and pneumonia and get CT. Rx Zosyn and Vanco and pending Ct and abx response consider cuff drainage by me or interventional radiology Garfield Quach M.D. Social History Smoking Status: Never smoker Exam/Review of Systems Vital Signs Vitals Vital Signs Date Time Temp Pulse Resp B/P Pulse Ox O2 Delivery O2 Flow Rate FiO2 11/01/16 08:28 101.4 111 17 121/67 95 11/01/16 03:05 Room Air Intake and Output 10/31/16 10/31/16 11/01/16 15:00 23:00 07:00 Intake Total 100 ml 580 ml Output Total 200 ml Balance 100 ml 380 ml Results Result Diagram: 11/01/1633 11/01/16 0633 Results 24 hrs Laboratory Tests Test 10/31/16 19:25 10/31/16 21:00 10/31/16 22:30 10/31/16 22:50 Alanine Aminotransferase (ALT/SGPT) 46 Albumin 3.7 Albumin/Globulin Ratio 0.97 Alkaline Phosphatase 86 Anion Gap 16 Aspartate Amino Transf (AST/SGOT) 34 Blood Morphology Comment Blood Urea Nitrogen 7 Calcium Level 8.6 Carbon Dioxide Level 23 Chloride Level 101 Creatinine 0.60 Direct Bilirubin 0.00 Giant Platelets 1+ Globulin 3.80 H Glucose Level 124 Hematocrit 36.9 L Hemoglobin 12.2 Indirect Bilirubin 0.8 Lactic Acid Level 1.0 0.8 0.8 Lipase 24 Lymphocytes # 2.2 Lymphocytes % 8.0 L Mean Corpuscular Hemoglobin 26.8 L Mean Corpuscular Hemoglobin Concent 33.1 Mean Corpuscular Volume 81.2 L Mean Platelet Volume 8.2 Monocytes # 2.7 H Monocytes % 10.0 Neutrophils # 22.5 H Neutrophils % 82.0 H Platelet Count 370 # Platelet Estimate PLT APPEAR ADEQUATE Potassium Level 3.4 L Red Blood Count 4.55 Red Cell Distribution Width 14.4 Sodium Level 137 Total Bilirubin 0.8 Total Protein 7.5 White Blood Count 27.4 #H Urine Bacteria RARE Urine Bilirubin NEGATIVE Urine Clarity CLEAR Urine Color PALE PINK Urine Glucose NEGATIVE Urine Hemoglobin 3+ H Urine Ketones NEGATIVE Urine Leukocyte Esterase NEGATIVE Urine Microscopic RBC >50 Urine Microscopic WBC 0-2 Urine Nitrite NEGATIVE Urine Specific [place] <=1.005 L Urine Squamous Epithelial Cells RARE Urine Total Protein NEGATIVE Urine Urobilinogen 0.2 E.U./dL Urine pH 6.0 Test 11/01/16 06:33 Alanine Aminotransferase (ALT/SGPT) 38 Albumin 3.4 Albumin/Globulin Ratio 1.00 Alkaline Phosphatase 88 Anion Gap 14 Aspartate Amino Transf (AST/SGOT) 24 Basophils # 0.0 Basophils % 0.0 Blood Morphology Comment Blood Urea Nitrogen 5 L Calcium Level 8.0 L Carbon Dioxide Level 25 Chloride Level 103 Creatinine 0.61 Direct Bilirubin 0.00 Eosinophils # 0.0 Eosinophils % 0.1 Globulin 3.40 H Glucose Level 145 Hematocrit 32.8 L Hemoglobin 10.9 L Indirect Bilirubin 0.6 Lymphocytes # 1.6 Lymphocytes % 6.5 L Magnesium Level 2.2 Mean Corpuscular Hemoglobin 27.3 L Mean Corpuscular Hemoglobin Concent 33.4 Mean Corpuscular Volume 81.7 L Mean Platelet Volume 8.5 Monocytes # 1.1 H Monocytes % 4.4 Neutrophils # 21.4 H Neutrophils % 89.0 H Nucleated Red Blood Cells # 0.0 Nucleated Red Blood Cells % 0.0 Phosphorus Level 2.5 Platelet Count 335 Potassium Level 3.4 L Red Blood Count 4.01 L Red Cell Distribution Width 14.3 Sodium Level 139 Total Bilirubin 0.6 Total Protein 6.8 White Blood Count 24.0 H Medications Medications Current Medications Piperacillin Sod/ Tazobactam Sod 100 ml @ 200 mls/hr Q8 IVPB Last administered on 11/01/16 05:42; Admin Dose 200 MLS/HR; Start 11/01/16 at 06:00 Vancomycin HCl/ Sodium Chloride (Vancocin/NS) 250 ml @ 83.333 mls/ hr Q12H IVPB ; Start 11/01/16 at 08:00 Acetaminophen (Tylenol Tab) 650 mg Q6H PRN PO PAIN AND OR ELEVATED TEMP Last administered on 11/01/16 07:46; Admin Dose 650 MG; Start 11/01/16 at 05:00 GARFIELD QUACH MD Nov 01, 2016 08:46
--- NOTE | 2016-11-01 10:44 | HP ---
DATE OF ADMISSION: 10/31/2016 CHIEF COMPLAINT: Fever, abdominal pain. HISTORY OF PRESENT ILLNESS: The patient is a 36-year-old female with a history of hypertension, dys lipidemia and endometrial hyperplasia/carcinoma status post laparoscopic total hysterectomy with ludy ateral salpingectomy, who was sent to the ER for a possible postop abscess and evaluation of abdomin al pain and fever. As mentioned, the patient recently had a laparoscopic total hysterectomy with bi lateral salpingectomy, urethrolysis and lymph node dissection. When the patient was in the ER, CT a bdomen and pelvis was done which showed pelvic fluid collection with a differential diagnosis being postop abscess. Currently, patient is admitted to the hospital for further treatment. On physical examination, the tiffany are intact and there is no sign of active infection. She denied any chest pain, shortness of breath, nausea or vomiting. REVIEW OF SYSTEMS: A 12-point review is performed and negative except as mentioned in HPI. PAST MEDICAL HISTORY: As per HPI. PAST SURGICAL HISTORY: As per HPI. SOCIAL HISTORY: The patient denies history of alcohol, tobacco or illicit drug use. ALLERGIES: NO KNOWN DRUG ALLERGIES. HOME MEDICATIONS: See her meds. PHYSICAL EXAMINATION: GENERAL: The patient is lying in bed in no acute distress. She is answering questions appropriatel y. HEENT: No obvious head deformity. Pupils are reactive to light. Extraocular muscles intact. CARDIOVASCULAR: Slight tachycardia, regular rhythm. LUNGS: Clear. ABDOMEN: Soft. The surgical site with no sign of infection. [place] are intact. There are positi ve bowel sounds. GENITOURINARY: There is a Shrestha catheter in place. . EXTREMITIES: No edema. IMAGING: CT abdomen and pelvis with results as mentioned in the HPI. IMPRESSION: 1. Probable postop abscess. 2. Abdominal pain. 3. Fever. 4. Endometrial hyperplasia/carcinoma, status post total hysterectomy with bilateral salpingectomy 5. History of hypertension. 6. History of dyslipidemia. PLAN: The CAT scan finding of pelvic fluid collection could be an abscess or it could be postop renny gical change. In any case, she will be placed on antibiotics. We will followup on the cultures sai t were sent in the ER. We will provide pain medication as needed. The patient has a Shrestha catheter which needs to be left, so we will not . We will check a urine culture from the Shrestha. She w ill be continued with her antihypertensives with adjustment as needed. She is to be followed by her surgeon, Dr. Kimble. Further workup and management per clinical course. Dictated By: DIMAS ZENG/IDALMIS Conf#: [id number] DID#: [id number]
--- NOTE | 2016-11-01 14:29 | PN ---
Date/Time of Note Date/Time of Note DATE: 11/01/16 TIME: 14:22 Assessment/Plan VTE Prophylaxis VTE Prophylaxis Intervention: SCD's Lines/Catheters IV Catheter Type (from Nrs): Saline Lock Urinary Cath still in place: Yes Assessment/Plan Chief Complaint/Hosp Course vaginal cuff cellulitis/possible abscess Problems: Assessment/Plan A- improved with decreased fever index. Some vagina drainage of cuff cellulitis/ abscess. P- continue to observe and consider drainage of collection vaginally or with CT if worsens or Mon-Wed if does not continue to improve. Subjective 24 Hr Interval Summary Free Text/Dictation S- feels slightly better. Less pain and + flatus. No N/V. O- Resp- clear CVS- NSR Abd- soft less tender Pelvis- Minimal cuff discharge Ext- NT no edema A- improved with decreased fever index. Some vagina drainage of cuff cellulitis/ abscess. P- continue to observe and consider drainage of collection vaginally or with CT if worsens or Mon-Wed if does not continue to improve. Exam/Review of Systems Vital Signs Vitals Vital Signs Date Time Temp Pulse Resp B/P Pulse Ox O2 Delivery O2 Flow Rate FiO2 11/01/16 13:40 99.9 11/01/16 08:28 111 17 121/67 95 11/01/16 03:05 Room Air Intake and Output 10/31/16 10/31/16 11/01/16 15:00 23:00 07:00 Intake Total 100 ml 580 ml Output Total 200 ml Balance 100 ml 380 ml Results Result Diagram: 11/01/16 0633 11/01/16 0633 Results 24 hrs Laboratory Tests Test 10/31/16 19:25 10/31/16 21:00 10/31/16 22:30 10/31/16 22:50 Alanine Aminotransferase (ALT/SGPT) 46 Albumin 3.7 Albumin/Globulin Ratio 0.97 Alkaline Phosphatase 86 Anion Gap 16 Aspartate Amino Transf (AST/SGOT) 34 Blood Morphology Comment Blood Urea Nitrogen 7 Calcium Level 8.6 Carbon Dioxide Level 23 Chloride Level 101 Creatinine 0.60 Direct Bilirubin 0.00 Giant Platelets 1+ Globulin 3.80 H Glucose Level 124 Hematocrit 36.9 L Hemoglobin 12.2 Indirect Bilirubin 0.8 Lactic Acid Level 1.0 0.8 0.8 Lipase 24 Lymphocytes # 2.2 Lymphocytes % 8.0 L Mean Corpuscular Hemoglobin 26.8 L Mean Corpuscular Hemoglobin Concent 33.1 Mean Corpuscular Volume 81.2 L Mean Platelet Volume 8.2 Monocytes # 2.7 H Monocytes % 10.0 Neutrophils # 22.5 H Neutrophils % 82.0 H Platelet Count 370 # Platelet Estimate PLT APPEAR ADEQUATE Potassium Level 3.4 L Red Blood Count 4.55 Red Cell Distribution Width 14.4 Sodium Level 137 Total Bilirubin 0.8 Total Protein 7.5 White Blood Count 27.4 #H Urine Bacteria RARE Urine Bilirubin NEGATIVE Urine Clarity CLEAR Urine Color PALE PINK Urine Glucose NEGATIVE Urine Hemoglobin 3+ H Urine Ketones NEGATIVE Urine Leukocyte Esterase NEGATIVE Urine Microscopic RBC >50 Urine Microscopic WBC 0-2 Urine Nitrite NEGATIVE Urine Specific [place] <=1.005 L Urine Squamous Epithelial Cells RARE Urine Total Protein NEGATIVE Urine Urobilinogen 0.2 E.U./dL Urine pH 6.0 Test 11/01/16 06:33 Alanine Aminotransferase (ALT/SGPT) 38 Albumin 3.4 Albumin/Globulin Ratio 1.00 Alkaline Phosphatase 88 Anion Gap 14 Aspartate Amino Transf (AST/SGOT) 24 Basophils # 0.0 Basophils % 0.0 Blood Morphology Comment Blood Urea Nitrogen 5 L Calcium Level 8.0 L Carbon Dioxide Level 25 Chloride Level 103 Creatinine 0.61 Direct Bilirubin 0.00 Eosinophils # 0.0 Eosinophils % 0.1 Globulin 3.40 H Glucose Level 145 Hematocrit 32.8 L Hemoglobin 10.9 L Indirect Bilirubin 0.6 Lymphocytes # 1.6 Lymphocytes % 6.5 L Magnesium Level 2.2 Mean Corpuscular Hemoglobin 27.3 L Mean Corpuscular Hemoglobin Concent 33.4 Mean Corpuscular Volume 81.7 L Mean Platelet Volume 8.5 Monocytes # 1.1 H Monocytes % 4.4 Neutrophils # 21.4 H Neutrophils % 89.0 H Nucleated Red Blood Cells # 0.0 Nucleated Red Blood Cells % 0.0 Phosphorus Level 2.5 Platelet Count 335 Potassium Level 3.4 L Red Blood Count 4.01 L Red Cell Distribution Width 14.3 Sodium Level 139 Total Bilirubin 0.6 Total Protein 6.8 White Blood Count 24.0 H Medications Medications Current Medications Piperacillin Sod/ Tazobactam Sod (Zosyn 3.375gm/ 100 ml (Pmx)) 100 ml @ 200 mls /hr Q8 IVPB Last administered on 11/01/16t 13:48; Admin Dose 200 MLS/HR; Start 11/01/16 at 06:00 Acetaminophen 650 mg 650 mg Q6H PRN PO PAIN AND OR ELEVATED TEMP Last administered on 11/01/16t 13:48; Admin Dose 650 MG; Start 11/01/16 at 05:00 Vancomycin HCl/ Sodium Chloride (Vancocin/NS) 250 ml @ 83.333 mls/ hr Q12H IVPB ; Start 11/01/16 at 21:00 JANETH QUACH MD Nov 01, 2016 14:28
[2016-11-01] MEDS ORDERED: POTASSIUM CHLORIDE (SR) 20 MEQ TAB PO STA (18:38)
--- NOTE | 2016-11-01 18:40 | PN ---
Date/Time of Note Date/Time of Note DATE: 11/01/16 TIME: 18:37 Assessment/Plan VTE Prophylaxis VTE Prophylaxis Intervention: SCD's Lines/Catheters IV Catheter Type (from Nrs): Saline Lock Assessment/Plan Chief Complaint/Hosp Course 1. Sepsis 2/2 Probable postop abscess -cont Abx, FU with Help Desk Representative recs 2.. Endometrial hyperplasia/carcinoma, status post total hysterectomy with bilateral salpingectomy 3. History of hypertension- currently low -Hold Rx PPx SCD's Problems: Subjective 24 Hr Interval Summary Gastrointestinal: pain Exam/Review of Systems Vital Signs Vitals Vital Signs Date Time Temp Pulse Resp B/P Pulse Ox O2 Delivery O2 Flow Rate FiO2 11/01/16 18:26 98.3 11/01/16 08:28 111 17 121/67 95 11/01/16 03:05 Room Air Intake and Output 10/31/16 10/31/16 11/01/16 15:00 23:00 07:00 Intake Total 100 ml 580 ml Output Total 200 ml Balance 100 ml 380 ml Exam Constitutional: alert, oriented Respiratory: clear to auscultation Cardiovascular: regular rate and rhythm Gastrointestinal: soft, tender, No distended Musculoskeletal: nl extremities to inspection Results Result Diagram: 11/01/16 0633 11/01/16 0633 Results 24 hrs Laboratory Tests Test 10/31/16 19:25 10/31/16 21:00 10/31/16 22:30 10/31/16 22:50 Alanine Aminotransferase (ALT/SGPT) 46 Albumin 3.7 Albumin/Globulin Ratio 0.97 Alkaline Phosphatase 86 Anion Gap 16 Aspartate Amino Transf (AST/SGOT) 34 Blood Morphology Comment Blood Urea Nitrogen 7 Calcium Level 8.6 Carbon Dioxide Level 23 Chloride Level 101 Creatinine 0.60 Direct Bilirubin 0.00 Giant Platelets 1+ Globulin 3.80 H Glucose Level 124 Hematocrit 36.9 L Hemoglobin 12.2 Indirect Bilirubin 0.8 Lactic Acid Level 1.0 0.8 0.8 Lipase 24 Lymphocytes # 2.2 Lymphocytes % 8.0 L Mean Corpuscular Hemoglobin 26.8 L Mean Corpuscular Hemoglobin Concent 33.1 Mean Corpuscular Volume 81.2 L Mean Platelet Volume 8.2 Monocytes # 2.7 H Monocytes % 10.0 Neutrophils # 22.5 H Neutrophils % 82.0 H Platelet Count 370 # Platelet Estimate PLT APPEAR ADEQUATE Potassium Level 3.4 L Red Blood Count 4.55 Red Cell Distribution Width 14.4 Sodium Level 137 Total Bilirubin 0.8 Total Protein 7.5 White Blood Count 27.4 #H Urine Bacteria RARE Urine Bilirubin NEGATIVE Urine Clarity CLEAR Urine Color PALE PINK Urine Glucose NEGATIVE Urine Hemoglobin 3+ H Urine Ketones NEGATIVE Urine Leukocyte Esterase NEGATIVE Urine Microscopic RBC >50 Urine Microscopic WBC 0-2 Urine Nitrite NEGATIVE Urine Specific [place] <=1.005 L Urine Squamous Epithelial Cells RARE Urine Total Protein NEGATIVE Urine Urobilinogen 0.2 E.U./dL Urine pH 6.0 Test 11/01/16 06:33 Alanine Aminotransferase (ALT/SGPT) 38 Albumin 3.4 Albumin/Globulin Ratio 1.00 Alkaline Phosphatase 88 Anion Gap 14 Aspartate Amino Transf (AST/SGOT) 24 Basophils # 0.0 Basophils % 0.0 Blood Morphology Comment Blood Urea Nitrogen 5 L Calcium Level 8.0 L Carbon Dioxide Level 25 Chloride Level 103 Creatinine 0.61 Direct Bilirubin 0.00 Eosinophils # 0.0 Eosinophils % 0.1 Globulin 3.40 H Glucose Level 145 Hematocrit 32.8 L Hemoglobin 10.9 L Indirect Bilirubin 0.6 Lymphocytes # 1.6 Lymphocytes % 6.5 L Magnesium Level 2.2 Mean Corpuscular Hemoglobin 27.3 L Mean Corpuscular Hemoglobin Concent 33.4 Mean Corpuscular Volume 81.7 L Mean Platelet Volume 8.5 Monocytes # 1.1 H Monocytes % 4.4 Neutrophils # 21.4 H Neutrophils % 89.0 H Nucleated Red Blood Cells # 0.0 Nucleated Red Blood Cells % 0.0 Phosphorus Level 2.5 Platelet Count 335 Potassium Level 3.4 L Red Blood Count 4.01 L Red Cell Distribution Width 14.3 Sodium Level 139 Total Bilirubin 0.6 Total Protein 6.8 White Blood Count 24.0 H Medications Medications Current Medications Piperacillin Sod/ Tazobactam Sod (Zosyn 3.375gm/ 100 ml (Pmx)) 100 ml @ 200 mls /hr Q8 IVPB Last administered on 11/01/16 13:48; Admin Dose 200 MLS/HR; Start 11/01/16 at 06:00 Acetaminophen 650 mg 650 mg Q6H PRN PO PAIN AND OR ELEVATED TEMP Last administered on 11/01/16 13:48; Admin Dose 650 MG; Start 11/01/16 at 05:00 Vancomycin HCl/ Sodium Chloride (Vancocin/NS) 250 ml @ 83.333 mls/ hr Q12H IVPB ; Start 11/01/16 at 21:00 JESSE BREWER Nov 01, 2016 18:40
[2016-11-01 20:27] VITALS: BP 117/59; RESP 20
[2016-11-01] MEDS: VANCOMYCIN 1.5 GM in SOD CHLORIDE 0.9% 250 ML IVPB SCH (21:41)
[2016-11-01 22:14] VITALS: PULSE 88
[2016-11-02] MEDS: PIPER-TAZO 3.375 GM IV (PMX) 100 ML IVPB SCH ×3 (05:30→21:03)
[2016-11-02 07:12] LABS: BASOPHIL # 0.1 10^3/ul (0.0-0.1); BASOPHILS % 0.3 % (0.0-2.0); EOSINOPHILS # 0.1 10^3/ul (0.0-0.5); EOSINOPHILS % 0.7 % (0.0-7.0); HEMATOCRIT 31.6 % (37.0-47.0); HEMOGLOBIN 10.6 g/dl (12.0-16.0); LYMPHOCYTES # 2.4 10^3/ul (0.8-2.9); LYMPHOCYTES % 13.7 % (15.0-51.0); MEAN CORPUSCULAR HEMOGLOBIN 27.4 pg (29.0-33.0); MEAN CORPUSCULAR HGB CONC 33.5 g/dl (32.0-37.0); MEAN CORPUSCULAR VOLUME 81.8 fl (82.0-101.0); MEAN PLATELET VOLUME 8.8 fl (7.4-10.4); MONOCYTE # 0.9 10^3/ul (0.3-0.9); MONOCYTES % 4.9 % (0.0-11.0); NEUTROPHIL # 13.9 10^3/ul (1.6-7.5); NEUTROPHILS % 80.4 % (39.0-77.0); PLATELET COUNT 387 10^3/UL (140-440); RED BLOOD COUNT 3.86 10^6/ul (4.20-5.40); RED CELL DISTRIBUTION WIDTH 14.6 % (11.5-14.5); UNCORRECTED WBC 17.3 10^3/ul (4.8-10.8); WHITE BLOOD COUNT 17.3 10^3/ul (4.8-10.8)
[2016-11-02 07:14] LABS: CONDITION 1; LH ANALYZER COMMENTS 1
[2016-11-02 07:31] LABS: ALBUMIN 3.4 g/dl (3.3-4.9)
[2016-11-02 07:32] LABS: POTASSIUM 3.2 mmol/L (3.5-5.1)
[2016-11-02 07:34] LABS: ALBUMIN/GLOBULIN RATIO 0.94; BILIRUBIN,INDIRECT 0.2 mg/dl (0-1.1); BILIRUBIN,TOTAL 0.2 mg/dl (0.2-1.3); CREATININE 0.58 mg/dl (0.44-1.00)
[2016-11-02 07:37] LABS: MAGNESIUM 2.3 mg/dl (1.7-2.5); PHOSPHORUS 3.8 mg/dl (2.5-4.9)
[2016-11-02 07:47] VITALS: BP 109/66; RESP 18
[2016-11-02] MEDS: VANCOMYCIN 1.5 GM in SOD CHLORIDE 0.9% 250 ML IVPB SCH ×2 (08:13→21:53)
[2016-11-02] MEDS ORDERED: POTASSIUM CHLORIDE (SR) 20 MEQ TAB PO STA (12:54)
--- NOTE | 2016-11-02 17:34 | PN ---
Date/Time of Note Date/Time of Note DATE: 11/02/16 TIME: 17:33 Assessment/Plan VTE Prophylaxis VTE Prophylaxis Intervention: SCD's Lines/Catheters IV Catheter Type (from Nrsg): Peripheral IV Assessment/Plan Chief Complaint/Hosp Course 1. Sepsis 2/2 Probable postop abscess-Improving -cont Abx, FU with Extractor Loader And Unloader recs 2.. Endometrial hyperplasia/carcinoma, status post total hysterectomy with bilateral salpingectomy 3. History of hypertension- currently low -Hold Rx PPx SCD's Problems: Subjective 24 Hr Interval Summary Gastrointestinal: pain Exam/Review of Systems Vital Signs Vitals Vital Signs Date Time Temp Pulse Resp B/P Pulse Ox O2 Delivery O2 Flow Rate FiO2 11/02/16 07:47 98.5 98 18 109/66 94 11/01/16 03:05 Room Air Intake and Output 11/01/16 11/01/16 11/02/16 15:00 23:00 07:00 Intake Total 350 ml 1280 ml 500 ml Output Total 820 ml Balance 350 ml 1280 ml -320 ml Exam Constitutional: alert, oriented Respiratory: clear to auscultation Cardiovascular: regular rate and rhythm Gastrointestinal: soft, No distended Musculoskeletal: nl extremities to inspection Results Result Diagram: 11/02/16 0530 11/02/16 0530 Results 24 hrs Laboratory Tests Test 11/02/16 05:30 Alanine Aminotransferase (ALT/SGPT) 31 Albumin 3.4 Albumin/Globulin Ratio 0.94 Alkaline Phosphatase 103 Anion Gap 17 H Aspartate Amino Transf (AST/SGOT) 20 Basophils # 0.1 Basophils % 0.3 Blood Morphology Comment Blood Urea Nitrogen 5 L Calcium Level 8.0 L Carbon Dioxide Level 23 Chloride Level 105 Creatinine 0.58 Direct Bilirubin 0.00 Eosinophils # 0.1 Eosinophils % 0.7 Globulin 3.60 H Glucose Level 96 # Hematocrit 31.6 L Hemoglobin 10.6 L Indirect Bilirubin 0.2 Lymphocytes # 2.4 Lymphocytes % 13.7 L Magnesium Level 2.3 Mean Corpuscular Hemoglobin 27.4 L Mean Corpuscular Hemoglobin Concent 33.5 Mean Corpuscular Volume 81.8 L Mean Platelet Volume 8.8 Monocytes # 0.9 Monocytes % 4.9 Neutrophils # 13.9 H Neutrophils % 80.4 H Nucleated Red Blood Cells # 0.0 Nucleated Red Blood Cells % 0.0 Phosphorus Level 3.8 Platelet Count 387 Potassium Level 3.2 L Red Blood Count 3.86 L Red Cell Distribution Width 14.6 H Sodium Level 142 Total Bilirubin 0.2 Total Protein 7.0 White Blood Count 17.3 #H Medications Medications Current Medications Piperacillin Sod/ Tazobactam Sod (Zosyn 3.375gm/ 100 ml (Pmx)) 100 ml @ 200 mls /hr Q8 IVPB Last administered on 11/02/16 13:17; Admin Dose 200 MLS/HR; Start 11/01/16 at 06:00 Acetaminophen 650 mg 650 mg Q6H PRN PO PAIN AND OR ELEVATED TEMP Last administered on 11/01/16 13:48; Admin Dose 650 MG; Start 11/01/16 at 05:00 Vancomycin HCl/ Sodium Chloride (Vancocin/NS) 250 ml @ 83.333 mls/ hr Q12H IVPB Last administered on 11/02/16 08:13; Admin Dose 83.333 MLS/HR; Start at 21:00 Miscellaneous Information (*Rx Drug Level Order Reminder*) VANCOMYCIN TROUGH AT 1999 ONCE ONCE XX ; Start 11/02/16 at 20:00; Stop 11/02/16 at 20:01 JESSE BREWER Nov 02, 2016 17:34
[2016-11-02] MEDS: ACETAMINOPHEN 325 MG TAB PO PRN (18:49)
[2016-11-02 20:00] VITALS: BP 120/64; PULSE 85; RESP 16
--- NOTE | 2016-11-02 20:16 | PN ---
Date/Time of Note Date/Time of Note DATE: 11/02/16 TIME: 20:10 Assessment/Plan VTE Prophylaxis VTE Prophylaxis Intervention: SCD's Lines/Catheters IV Catheter Type (from Nrsg): Peripheral IV Assessment/Plan Chief Complaint/Hosp Course vaginal cuff cellulitis/possible abscess Problems: Assessment/Plan A- significant improvement in symptoms, afebrile > 24 hrs and WBC down. P- continue to observe and if current trend continues would change to oral Levaquin and Flagyl in 2-3 d and discharge Subjective 24 Hr Interval Summary Free Text/Dictation S- feels much better. Less pain and + flatus and BM O- Resp- clear CVS- NSR Abd- soft less tender Ext- NT no edema A- significant improvement in symptoms, afebrile > 24 hrs and WBC down. P- continue to observe and if current trend continues would change to oral Levaquin and Flagyl in 2-3 d and discharge Exam/Review of Systems Vital Signs Vitals Vital Signs Date Time Temp Pulse Resp B/P Pulse Ox O2 Delivery O2 Flow Rate FiO2 11/02/16 07:47 98.5 98 18 109/66 94 11/01/16 03:05 Room Air Intake and Output 11/01/16 11/01/16 11/02/16 15:00 23:00 07:00 Intake Total 350 ml 1280 ml 500 ml Output Total 820 ml Balance 350 ml 1280 ml -320 ml Results Result Diagram: 11/02/16 0530 11/02/16 0530 Results 24 hrs Laboratory Tests Test 11/02/16 05:30 Alanine Aminotransferase (ALT/SGPT) 31 Albumin 3.4 Albumin/Globulin Ratio 0.94 Alkaline Phosphatase 103 Anion Gap 17 H Aspartate Amino Transf (AST/SGOT) 20 Basophils # 0.1 Basophils % 0.3 Blood Morphology Comment Blood Urea Nitrogen 5 L Calcium Level 8.0 L Carbon Dioxide Level 23 Chloride Level 105 Creatinine 0.58 Direct Bilirubin 0.00 Eosinophils # 0.1 Eosinophils % 0.7 Globulin 3.60 H Glucose Level 96 # Hematocrit 31.6 L Hemoglobin 10.6 L Indirect Bilirubin 0.2 Lymphocytes # 2.4 Lymphocytes % 13.7 L Magnesium Level 2.3 Mean Corpuscular Hemoglobin 27.4 L Mean Corpuscular Hemoglobin Concent 33.5 Mean Corpuscular Volume 81.8 L Mean Platelet Volume 8.8 Monocytes # 0.9 Monocytes % 4.9 Neutrophils # 13.9 H Neutrophils % 80.4 H Nucleated Red Blood Cells # 0.0 Nucleated Red Blood Cells % 0.0 Phosphorus Level 3.8 Platelet Count 387 Potassium Level 3.2 L Red Blood Count 3.86 L Red Cell Distribution Width 14.6 H Sodium Level 142 Total Bilirubin 0.2 Total Protein 7.0 White Blood Count 17.3 #H Medications Medications Current Medications Piperacillin Sod/ Tazobactam Sod (Zosyn 3.375gm/ 100 ml (Pmx)) 100 ml @ 200 mls /hr Q8 IVPB Last administered on 11/02/16 13:17; Admin Dose 200 MLS/HR; Start 11/01/16 at 06:00 Acetaminophen 650 mg 650 mg Q6H PRN PO PAIN AND OR ELEVATED TEMP Last administered on 11/02/16 18:49; Admin Dose 650 MG; Start 11/01/16 at 05:00 Vancomycin HCl/ Sodium Chloride (Vancocin/NS) 250 ml @ 83.333 mls/ hr Q12H IVPB Last administered on 11/02/16 08:13; Admin Dose 83.333 MLS/HR; Start at 21:00 JANETH QUACH MD Nov 02, 2016 20:16
[2016-11-03] MEDS: PIPER-TAZO 3.375 GM IV (PMX) 100 ML IVPB SCH ×3 (05:01→22:41)
[2016-11-03] MEDS: VANCOMYCIN 1.75 GM in NS 500 ML IVPB SCH ×2 (05:36→18:08)
[2016-11-03 07:38] LABS: BASOPHILS % 0.4 % (0.0-2.0); EOSINOPHILS # 0.3 10^3/ul (0.0-0.5); EOSINOPHILS % 2.3 % (0.0-7.0); HEMATOCRIT 31.3 % (37.0-47.0); HEMOGLOBIN 10.5 g/dl (12.0-16.0); LYMPHOCYTES # 1.8 10^3/ul (0.8-2.9); MEAN CORPUSCULAR HEMOGLOBIN 27.3 pg (29.0-33.0); MEAN CORPUSCULAR HGB CONC 33.5 g/dl (32.0-37.0); MEAN CORPUSCULAR VOLUME 81.5 fl (82.0-101.0); MEAN PLATELET VOLUME 8.5 fl (7.4-10.4); MONOCYTE # 0.7 10^3/ul (0.3-0.9); NEUTROPHIL # 9.3 10^3/ul (1.6-7.5); NEUTROPHILS % 76.3 % (39.0-77.0); PLATELET COUNT 459 10^3/UL (140-440); RED BLOOD COUNT 3.85 10^6/ul (4.20-5.40); RED CELL DISTRIBUTION WIDTH 14.5 % (11.5-14.5); UNCORRECTED WBC 12.3 10^3/ul (4.8-10.8); WHITE BLOOD COUNT 12.3 10^3/ul (4.8-10.8)
[2016-11-03 07:43] LABS: CONDITION 1; LH ANALYZER COMMENTS 1
[2016-11-03 07:49] LABS: POTASSIUM 3.9 mmol/L (3.5-5.1)
[2016-11-03 07:52] LABS: CREATININE 0.59 mg/dl (0.44-1.00)
[2016-11-03 07:53] LABS: CALCIUM 8.2 mg/dl (8.4-10.2)
[2016-11-03 08:19] VITALS: BP 119/67; RESP 17
--- NOTE | 2016-11-03 14:40 | PN ---
Date/Time of Note Date/Time of Note DATE: 11/03/16 TIME: 14:39 Assessment/Plan VTE Prophylaxis VTE Prophylaxis Intervention: SCD's Lines/Catheters IV Catheter Type (from Nrs): Peripheral IV Assessment/Plan Chief Complaint/Hosp Course 1. Sepsis 2/2 Probable postop abscess-Improving -cont Abx, FU with Private Investigator recs 2.. Endometrial hyperplasia/carcinoma, status post total hysterectomy with bilateral salpingectomy 3. History of hypertension- currently low -Hold Rx PPx SCD's Problems: Subjective 24 Hr Interval Summary Constitutional: no complaints Exam/Review of Systems Vital Signs Vitals Vital Signs Date Time Temp Pulse Resp B/P Pulse Ox O2 Delivery O2 Flow Rate FiO2 11/03/16 08:19 98.5 84 17 119/67 95 11/02/16 20:00 Room Air Intake and Output 11/02/16 11/02/16 11/03/16 15:00 23:00 07:00 Intake Total 350 ml 1480 ml 850 ml Output Total 1400 ml 1600 ml Balance 350 ml 80 ml -750 ml Exam Constitutional: alert, oriented Respiratory: clear to auscultation Cardiovascular: regular rate and rhythm Gastrointestinal: soft, No distended Musculoskeletal: nl extremities to inspection Results Result Diagram: 11/03/16 0615 11/03/16 0615 Results 24 hrs Laboratory Tests Test 11/02/16 20:04 11/03/16 06:15 Vancomycin Level Trough 9.2 L Anion Gap 16 Basophils # 0.0 Basophils % 0.4 Blood Morphology Comment Blood Urea Nitrogen 8 Calcium Level 8.2 L Carbon Dioxide Level 24 Chloride Level 109 Creatinine 0.59 Eosinophils # 0.3 Eosinophils % 2.3 Glucose Level 99 Hematocrit 31.3 L Hemoglobin 10.5 L Lymphocytes # 1.8 Lymphocytes % 15.0 Mean Corpuscular Hemoglobin 27.3 L Mean Corpuscular Hemoglobin Concent 33.5 Mean Corpuscular Volume 81.5 L Mean Platelet Volume 8.5 Monocytes # 0.7 Monocytes % 6.0 Neutrophils # 9.3 H Neutrophils % 76.3 Nucleated Red Blood Cells # 0.0 Nucleated Red Blood Cells % 0.0 Platelet Count 459 H Potassium Level 3.9 Red Blood Count 3.85 L Red Cell Distribution Width 14.5 Sodium Level 145 H White Blood Count 12.3 #H Medications Medications Current Medications Piperacillin Sod/ Tazobactam Sod (Zosyn 3.375gm/ 100 ml (Pmx)) 100 ml @ 200 mls /hr Q8 IVPB Last administered on 11/03/16 14:30; Admin Dose 200 MLS/HR; Start 11/01/16 at 06:00 Acetaminophen 650 mg 650 mg Q6H PRN PO PAIN AND OR ELEVATED TEMP Last administered on 11/02/16 18:49; Admin Dose 650 MG; Start 11/01/16 at 05:00 Vancomycin HCl/ Sodium Chloride (Vancocin/NS) 500 ml @ 125 mls/hr Q12H IVPB Last administered on 11/03/16 05:36; Admin Dose 125 MLS/HR; Start 11/03/16 at 06:00 JESSE BREWER Nov 03, 2016 14:40
--- NOTE | 2016-11-03 20:02 | PN ---
Date/Time of Note Date/Time of Note DATE: 11/03/16 TIME: 20:00 Assessment/Plan VTE Prophylaxis VTE Prophylaxis Intervention: SCD's Lines/Catheters IV Catheter Type (from Nrsg): Peripheral IV Assessment/Plan Chief Complaint/Hosp Course vaginal cuff cellulitis/possible abscess Problems: Assessment/Plan A- significant improvement in symptoms, afebrile > 48 hrs and WBC down. P- continue to observe and if current trend continues would change to oral Levaquin and Flagyl Friday or and discharge Friday or Friday Subjective 24 Hr Interval Summary Free Text/Dictation S- feels much better with no pain, + flatus and BM O- Resp- clear CVS- NSR Abd- soft less tender Ext- NT no edema A- significant improvement in symptoms, afebrile > 48 hrs and WBC down. P- continue to observe and if current trend continues would change to oral Levaquin and Flagyl Friday or and discharge Friday or Friday Exam/Review of Systems Vital Signs Vitals Vital Signs Date Time Temp Pulse Resp B/P Pulse Ox O2 Delivery O2 Flow Rate FiO2 11/03/16 14:40 98.3 11/03/16 08:19 84 17 119/67 95 11/02/16 20:00 Room Air Intake and Output 11/02/16 11/02/16 11/03/16 15:00 23:00 07:00 Intake Total 350 ml 1480 ml 850 ml Output Total 1400 ml 1600 ml Balance 350 ml 80 ml -750 ml Results Result Diagram: 11/03/16 0615 11/03/16 0615 Results 24 hrs Laboratory Tests Test 11/02/16 20:04 11/03/16 06:15 Vancomycin Level Trough 9.2 L Anion Gap 16 Basophils # 0.0 Basophils % 0.4 Blood Morphology Comment Blood Urea Nitrogen 8 Calcium Level 8.2 L Carbon Dioxide Level 24 Chloride Level 109 Creatinine 0.59 Eosinophils # 0.3 Eosinophils % 2.3 Glucose Level 99 Hematocrit 31.3 L Hemoglobin 10.5 L Lymphocytes # 1.8 Lymphocytes % 15.0 Mean Corpuscular Hemoglobin 27.3 L Mean Corpuscular Hemoglobin Concent 33.5 Mean Corpuscular Volume 81.5 L Mean Platelet Volume 8.5 Monocytes # 0.7 Monocytes % 6.0 Neutrophils # 9.3 H Neutrophils % 76.3 Nucleated Red Blood Cells # 0.0 Nucleated Red Blood Cells % 0.0 Platelet Count 459 H Potassium Level 3.9 Red Blood Count 3.85 L Red Cell Distribution Width 14.5 Sodium Level 145 H White Blood Count 12.3 #H Medications Medications Current Medications Piperacillin Sod/ Tazobactam Sod (Zosyn 3.375gm/ 100 ml (Pmx)) 100 ml @ 200 mls /hr Q8 IVPB Last administered on 11/03/16 14:30; Admin Dose 200 MLS/HR; Start 11/01/16 at 06:00 Acetaminophen 650 mg 650 mg Q6H PRN PO PAIN AND OR ELEVATED TEMP Last administered on 11/02/16 18:49; Admin Dose 650 MG; Start 11/01/16 at 05:00 Vancomycin HCl/ Sodium Chloride (Vancocin/NS) 500 ml @ 125 mls/hr Q12H IVPB Last administered on 11/03/16 18:08; Admin Dose 125 MLS/HR; Start 11/03/16 at 06:00 JANETH QUACH MD Nov 03, 2016 20:02
[2016-11-03 20:59] VITALS: BP 124/72; RESP 20
[2016-11-04] MEDS: PIPER-TAZO 3.375 GM IV (PMX) 100 ML IVPB SCH ×3 (05:00→21:47)
[2016-11-04] MEDS: VANCOMYCIN 1.75 GM in NS 500 ML IVPB SCH ×2 (05:37→17:06)
[2016-11-04 07:02] LABS: POTASSIUM 3.5 mmol/L (3.5-5.1)
[2016-11-04 07:04] LABS: BASOPHILS % 0.4 % (0.0-2.0); CREATININE 0.62 mg/dl (0.44-1.00); EOSINOPHILS # 0.4 10^3/ul (0.0-0.5); EOSINOPHILS % 3.2 % (0.0-7.0); HEMATOCRIT 32.2 % (37.0-47.0); HEMOGLOBIN 10.9 g/dl (12.0-16.0); LYMPHOCYTES # 2.1 10^3/ul (0.8-2.9); LYMPHOCYTES % 19.3 % (15.0-51.0); MEAN CORPUSCULAR HEMOGLOBIN 27.5 pg (29.0-33.0); MEAN CORPUSCULAR HGB CONC 33.8 g/dl (32.0-37.0); MEAN CORPUSCULAR VOLUME 81.5 fl (82.0-101.0); MEAN PLATELET VOLUME 8.1 fl (7.4-10.4); MONOCYTE # 1.1 10^3/ul (0.3-0.9); MONOCYTES % 9.7 % (0.0-11.0); NEUTROPHIL # 7.4 10^3/ul (1.6-7.5); NEUTROPHILS % 67.4 % (39.0-77.0); PLATELET COUNT 487 10^3/UL (140-440); RED BLOOD COUNT 3.96 10^6/ul (4.20-5.40); RED CELL DISTRIBUTION WIDTH 14.3 % (11.5-14.5)
[2016-11-04 07:05] LABS: CALCIUM 8.5 mg/dl (8.4-10.2)
[2016-11-04 07:07] LABS: CONDITION 1; LH ANALYZER COMMENTS 1
[2016-11-04 07:47] VITALS: BP 109/73; PULSE 83; RESP 18
--- NOTE | 2016-11-04 12:59 | PN ---
Date/Time of Note Date/Time of Note DATE: 11/04/16 TIME: 12:47 Assessment/Plan VTE Prophylaxis VTE Prophylaxis Intervention: SCD's Lines/Catheters IV Catheter Type (from Nrsg): Peripheral IV Urinary Cath still in place: Yes Reason Cath still needed: other (indicate) Assessment/Plan Assessment/Plan 1. Pelvic fluid collection, probable postop abscess-Improving, on vancomycin and zosyn 2.. Endometrial hyperplasia/carcinoma, status post total hysterectomy with bilateral salpingectomy, follow up with [facility] 3. Sepsis, improving 4. 2.8 cm left soft tissue nodule anterior to the psoas muscle, follow up with [facility] 5. History of hypertension, controlled without antihypertensive 6. PPx SCD's Subjective 24 Hr Interval Summary Free Text/Dictation feels ok Exam/Review of Systems Vital Signs Vitals Vital Signs Date Time Temp Pulse Resp B/P Pulse Ox O2 Delivery O2 Flow Rate FiO2 11/04/16 09:24 98.7 11/04/16 07:47 83 18 109/73 98 Room Air Intake and Output 11/03/16 11/03/16 11/04/16 15:00 23:00 07:00 Intake Total 600 ml 500 ml 1100 ml Output Total 1700 ml Balance 600 ml 500 ml -600 ml Exam Constitutional: alert, oriented, well developed Psych: nl mood/affect, no complaints Head: atraumatic, normocephalic Eyes: EOMI, PERRL, nl conjunctiva, nl lids ENMT: nl external ears & nose, nl nasal mucosa & septum Neck: non-tender, supple Respiratory: clear to auscultation, normal air movement, No congested cough, No crackles/rales, No diminished breath sounds, No intercostal retraction, No labored breathing, No other, No respirations, No tactile fremitus, No wheezing Cardiovascular: nl pulses, regular rate and rhythm, No S3, No S4, No bruits, No diastolic murmur, No edema, No gallop, No irregular rhythm, No jugular venous distention (JVD), No murmurs/extra sounds, No other, No rub, No systolic murmur Gastrointestinal: nl liver, spleen, soft Musculoskeletal: nl extremities to inspection Extremities: normal pulses, No calf tenderness, No clubbing, No cyanosis, No edema, No other, No palpable cord, No pitting pedal edema, No tenderness Neurological: GUIDANCE CONSULTANT II-XII intact, nl mental status, nl speech, nl strength Skin: nl turgor, rash or lesions Lymph: nl lymph nodes Results Result Diagram: 11/04/16 0500 11/04/16 0500 Results 24 hrs Laboratory Tests Test 11/04/16 05:00 Anion Gap 16 Basophils # 0.0 Basophils % 0.4 Blood Morphology Comment Blood Urea Nitrogen 7 Calcium Level 8.5 Carbon Dioxide Level 27 Chloride Level 103 Creatinine 0.62 Eosinophils # 0.4 Eosinophils % 3.2 Glucose Level 94 Hematocrit 32.2 L Hemoglobin 10.9 L Lymphocytes # 2.1 Lymphocytes % 19.3 Mean Corpuscular Hemoglobin 27.5 L Mean Corpuscular Hemoglobin Concent 33.8 Mean Corpuscular Volume 81.5 L Mean Platelet Volume 8.1 Monocytes # 1.1 H Monocytes % 9.7 Neutrophils # 7.4 Neutrophils % 67.4 Nucleated Red Blood Cells # 0.0 Nucleated Red Blood Cells % 0.0 Platelet Count 487 H Potassium Level 3.5 Red Blood Count 3.96 L Red Cell Distribution Width 14.3 Sodium Level 142 White Blood Count 11.0 H Medications Medications Current Medications Piperacillin Sod/ Tazobactam Sod (Zosyn 3.375gm/ 100 ml (Pmx)) 100 ml @ 200 mls /hr Q8 IVPB Last administered on 11/04/16 05:00; Admin Dose 200 MLS/HR; Start 11/01/16 at 06:00 Acetaminophen 650 mg 650 mg Q6H PRN PO PAIN AND OR ELEVATED TEMP Last administered on 11/02/16 18:49; Admin Dose 650 MG; Start 11/01/16 at 05:00 Vancomycin HCl/ Sodium Chloride (Vancocin/NS) 500 ml @ 125 mls/hr Q12H IVPB Last administered on 11/04/16 05:37; Admin Dose 125 MLS/HR; Start 11/03/16 at 06:00 Miscellaneous Information (*Rx Drug Level Order Reminder*) VANCOMYCIN TROUGH AT 0500 ONCE ONCE XX ; Start 11/05/16 at 05:00; Stop 11/05/16 at 05:01 DYLON NEGRON MD Nov 04, 2016 12:58
[2016-11-04 19:35] VITALS: BP 136/72; RESP 18
--- NOTE | 2016-11-04 21:35 | PN ---
Date/Time of Note Date/Time of Note DATE: 11/04/16 TIME: 21:31 Assessment/Plan VTE Prophylaxis VTE Prophylaxis Intervention: SCD's Lines/Catheters IV Catheter Type (from Nrsg): Peripheral IV Urinary Cath still in place: Yes Assessment/Plan Chief Complaint/Hosp Course vaginal cuff cellulitis/possible abscess Problems: Assessment/Plan A- significant improvement in symptoms, afebrile > 48 hrs and WBC down slightly. P- continue to observe and if current trend continues would change to oral Levaquin and Flagyl tomorrow and discharge possibly Friday Subjective 24 Hr Interval Summary Free Text/Dictation S- continues to feel better with no pain, + flatus and BM O- Resp- clear CVS- NSR Abd- soft less tender Ext- NT no edema A- significant improvement in symptoms, afebrile > 48 hrs and WBC down slightly. P- continue to observe and if current trend continues would change to oral Levaquin and Flagyl tomorrow and discharge possibly Friday Exam/Review of Systems Vital Signs Vitals Vital Signs Date Time Temp Pulse Resp B/P Pulse Ox O2 Delivery O2 Flow Rate FiO2 11/04/16 19:35 98.8 83 18 136/72 98 11/04/16 07:47 Room Air Intake and Output 11/03/16 11/03/16 11/04/16 15:00 23:00 07:00 Intake Total 600 ml 500 ml 1100 ml Output Total 1700 ml Balance 600 ml 500 ml -600 ml Results Result Diagram: 11/04/16 0500 11/04/16 0500 Results 24 hrs Laboratory Tests Test 11/04/16 05:00 Anion Gap 16 Basophils # 0.0 Basophils % 0.4 Blood Morphology Comment Blood Urea Nitrogen 7 Calcium Level 8.5 Carbon Dioxide Level 27 Chloride Level 103 Creatinine 0.62 Eosinophils # 0.4 Eosinophils % 3.2 Glucose Level 94 Hematocrit 32.2 L Hemoglobin 10.9 L Lymphocytes # 2.1 Lymphocytes % 19.3 Mean Corpuscular Hemoglobin 27.5 L Mean Corpuscular Hemoglobin Concent 33.8 Mean Corpuscular Volume 81.5 L Mean Platelet Volume 8.1 Monocytes # 1.1 H Monocytes % 9.7 Neutrophils # 7.4 Neutrophils % 67.4 Nucleated Red Blood Cells # 0.0 Nucleated Red Blood Cells % 0.0 Platelet Count 487 H Potassium Level 3.5 Red Blood Count 3.96 L Red Cell Distribution Width 14.3 Sodium Level 142 White Blood Count 11.0 H Medications Medications Current Medications Piperacillin Sod/ Tazobactam Sod (Zosyn 3.375gm/ 100 ml (Pmx)) 100 ml @ 200 mls /hr Q8 IVPB Last administered on 11/04/16 13:12; Admin Dose 200 MLS/HR; Start 11/01/16 at 06:00 Acetaminophen 650 mg 650 mg Q6H PRN PO PAIN AND OR ELEVATED TEMP Last administered on 11/02/16 18:49; Admin Dose 650 MG; Start 11/01/16 at 05:00 Vancomycin HCl/ Sodium Chloride (Vancocin/NS) 500 ml @ 125 mls/hr Q12H IVPB Last administered on 11/04/16 17:06; Admin Dose 125 MLS/HR; Start 11/03/16 at 06:00 Miscellaneous Information (*Rx Drug Level Order Reminder*) VANCOMYCIN TROUGH AT 0500 ONCE ONCE XX ; Start 11/05/16 at 05:00; Stop 11/05/16 at 05:01 JANETH QUACH MD Nov 04, 2016 21:35
[2016-11-05] MEDS: PIPER-TAZO 3.375 GM IV (PMX) 100 ML IVPB SCH ×3 (05:04→22:39)
[2016-11-05 06:00] LABS: BASOPHILS % 0.4 % (0.0-2.0); EOSINOPHILS # 0.5 10^3/ul (0.0-0.5); EOSINOPHILS % 4.4 % (0.0-7.0); HEMATOCRIT 32.9 % (37.0-47.0); HEMOGLOBIN 11.1 g/dl (12.0-16.0); LYMPHOCYTES # 2.2 10^3/ul (0.8-2.9); LYMPHOCYTES % 18.7 % (15.0-51.0); MEAN CORPUSCULAR HEMOGLOBIN 27.1 pg (29.0-33.0); MEAN CORPUSCULAR HGB CONC 33.6 g/dl (32.0-37.0); MEAN CORPUSCULAR VOLUME 80.7 fl (82.0-101.0); MEAN PLATELET VOLUME 8.1 fl (7.4-10.4); MONOCYTES % 8.1 % (0.0-11.0); NEUTROPHILS % 68.4 % (39.0-77.0); PLATELET COUNT 538 10^3/UL (140-440); RED BLOOD COUNT 4.08 10^6/ul (4.20-5.40); RED CELL DISTRIBUTION WIDTH 14.3 % (11.5-14.5); UNCORRECTED WBC 11.8 10^3/ul (4.8-10.8); WHITE BLOOD COUNT 11.8 10^3/ul (4.8-10.8)
[2016-11-05] MEDS: VANCOMYCIN 1.75 GM in NS 500 ML IVPB SCH ×2 (06:04→17:21)
[2016-11-05 06:11] LABS: CONDITION 1; LH ANALYZER COMMENTS 1
[2016-11-05 08:57] VITALS: BP 120/70; PULSE 102; RESP 18
--- NOTE | 2016-11-05 16:35 | PN ---
Date/Time of Note Date/Time of Note DATE: 11/05/16 TIME: 16:34 Assessment/Plan VTE Prophylaxis VTE Prophylaxis Intervention: SCD's Lines/Catheters IV Catheter Type (from Nrsg): Peripheral IV Urinary Cath still in place: Yes Reason Cath still needed: other (indicate) Assessment/Plan Assessment/Plan 1. Pelvic fluid collection, probable postop abscess-Improving, on vancomycin and zosyn 2.. Endometrial hyperplasia/carcinoma, status post total hysterectomy with bilateral salpingectomy, follow up with [facility] BIOLOGIST 3. Sepsis, improving 4. 2.8 cm left soft tissue nodule anterior to the psoas muscle, follow up with [facility] BIOLOGIST 5. History of hypertension, controlled without antihypertensive 6. PPx SCD's Subjective 24 Hr Interval Summary Free Text/Dictation Tmax 99.9 Exam/Review of Systems Vital Signs Vitals Vital Signs Date Time Temp Pulse Resp B/P Pulse Ox O2 Delivery O2 Flow Rate FiO2 11/05/16 08:57 98.1 102 18 120/70 96 Room Air Intake and Output 11/04/16 11/04/16 11/05/16 15:00 23:00 07:00 Intake Total 600 ml 1560 ml 580 ml Output Total 1400 ml 1300 ml Balance 600 ml 160 ml -720 ml Exam Constitutional: alert, oriented, well developed Psych: nl mood/affect, no complaints Head: atraumatic, normocephalic Eyes: EOMI, PERRL, nl conjunctiva, nl lids ENMT: mucosa pink and moist, nl lips & teeth, nl nasal mucosa & septum Neck: non-tender, supple Respiratory: clear to auscultation, normal air movement, No congested cough, No crackles/rales, No diminished breath sounds, No intercostal retraction, No labored breathing, No other, No respirations, No tactile fremitus, No wheezing Cardiovascular: nl pulses, regular rate and rhythm, No S3, No S4, No bruits, No diastolic murmur, No edema, No gallop, No irregular rhythm, No jugular venous distention (JVD), No murmurs/extra sounds, No other, No rub, No systolic murmur Gastrointestinal: nl liver, spleen, soft, No ascites, No bowel sounds, No distended, No firm, No hepatomegaly, No mass , No rebound or guarding, No splenomegaly Musculoskeletal: nl extremities to inspection Extremities: normal pulses, No calf tenderness, No clubbing, No cyanosis, No edema, No other, No palpable cord, No pitting pedal edema, No tenderness Neurological: CHESS INSTRUCTOR II-XII intact, nl mental status, nl speech, nl strength Skin: nl turgor, rash or lesions Results Result Diagram: 11/05/16 0500 11/04/16 0500 Results 24 hrs Laboratory Tests Test 11/05/16 05:00 11/05/16 05:10 Basophils # 0.0 Basophils % 0.4 Blood Morphology Comment Eosinophils # 0.5 Eosinophils % 4.4 Hematocrit 32.9 L Hemoglobin 11.1 L Lymphocytes # 2.2 Lymphocytes % 18.7 Mean Corpuscular Hemoglobin 27.1 L Mean Corpuscular Hemoglobin Concent 33.6 Mean Corpuscular Volume 80.7 L Mean Platelet Volume 8.1 Monocytes # 1.0 H Monocytes % 8.1 Neutrophils # 8.0 H Neutrophils % 68.4 Nucleated Red Blood Cells # 0.0 Nucleated Red Blood Cells % 0.0 Platelet Count 538 H Red Blood Count 4.08 L Red Cell Distribution Width 14.3 White Blood Count 11.8 H Vancomycin Level Trough 11.6 Medications Medications Current Medications Piperacillin Sod/ Tazobactam Sod (Zosyn 3.375gm/ 100 ml (Pmx)) 100 ml @ 200 mls /hr Q8 IVPB Last administered on 11/05/16 13:20; Admin Dose 200 MLS/HR; Start 11/01/16 at 06:00 Acetaminophen 650 mg 650 mg Q6H PRN PO PAIN AND OR ELEVATED TEMP Last administered on 11/02/16 18:49; Admin Dose 650 MG; Start 11/01/16 at 05:00 Vancomycin HCl/ Sodium Chloride (Vancocin/NS) 500 ml @ 125 mls/hr Q12H IVPB Last administered on 11/05/16 06:04; Admin Dose 125 MLS/HR; Start 11/03/16 at 06:00 DYLON NEGRON MD Nov 05, 2016 16:35
[2016-11-05] MEDS: ACETAMINOPHEN 325 MG TAB PO PRN (17:04)
--- NOTE | 2016-11-05 17:42 | PN ---
Date/Time of Note Date/Time of Note DATE: 11/05/16 TIME: 17:38 Assessment/Plan VTE Prophylaxis VTE Prophylaxis Intervention: SCD's Lines/Catheters IV Catheter Type (from Nrsg): Peripheral IV Urinary Cath still in place: Yes Assessment/Plan Chief Complaint/Hosp Course vaginal cuff cellulitis/possible abscess Problems: Assessment/Plan A- significant improvement other than WBC consistent at 11K P- continue to observe and if WBC rises will repeat CT and determine if need to drain collection. If WBC down change to oral Levaquin and Flagyl tomorrow and discharge possibly Friday or Subjective 24 Hr Interval Summary Free Text/Dictation S- feels better with no pain, + flatus and BM. Some discharge O- Resp- clear CVS- NSR Abd- soft less tender Pelvis- cuff intact and minimally tender Ext- NT no edema A- significant improvement other than WBC consistent at 11K P- continue to observe and if WBC rises will repeat CT and determine if need to drain collection. If WBC down change to oral Levaquin and Flagyl tomorrow and discharge possibly Friday or Exam/Review of Systems Vital Signs Vitals Vital Signs Date Time Temp Pulse Resp B/P Pulse Ox O2 Delivery O2 Flow Rate FiO2 11/05/16 08:57 98.1 102 18 120/70 96 Room Air Intake and Output 11/04/16 11/04/16 11/05/16 15:00 23:00 07:00 Intake Total 600 ml 1560 ml 580 ml Output Total 1400 ml 1300 ml Balance 600 ml 160 ml -720 ml Results Result Diagram: 11/05/16 0500 11/04/16 0500 Results 24 hrs Laboratory Tests Test 11/05/16 05:00 11/05/16 05:10 Basophils # 0.0 Basophils % 0.4 Blood Morphology Comment Eosinophils # 0.5 Eosinophils % 4.4 Hematocrit 32.9 L Hemoglobin 11.1 L Lymphocytes # 2.2 Lymphocytes % 18.7 Mean Corpuscular Hemoglobin 27.1 L Mean Corpuscular Hemoglobin Concent 33.6 Mean Corpuscular Volume 80.7 L Mean Platelet Volume 8.1 Monocytes # 1.0 H Monocytes % 8.1 Neutrophils # 8.0 H Neutrophils % 68.4 Nucleated Red Blood Cells # 0.0 Nucleated Red Blood Cells % 0.0 Platelet Count 538 H Red Blood Count 4.08 L Red Cell Distribution Width 14.3 White Blood Count 11.8 H Vancomycin Level Trough 11.6 Medications Medications Current Medications Piperacillin Sod/ Tazobactam Sod (Zosyn 3.375gm/ 100 ml (Pmx)) 100 ml @ 200 mls /hr Q8 IVPB Last administered on 11/05/16 13:20; Admin Dose 200 MLS/HR; Start 11/01/16 at 06:00 Acetaminophen 650 mg 650 mg Q6H PRN PO PAIN AND OR ELEVATED TEMP Last administered on 11/05/16 17:04; Admin Dose 650 MG; Start 11/01/16 at 05:00 Vancomycin HCl/ Sodium Chloride (Vancocin/NS) 500 ml @ 125 mls/hr Q12H IVPB Last administered on 11/05/16 17:21; Admin Dose 125 MLS/HR; Start 11/03/16 at 06:00 JANETH QUACH MD Nov 05, 2016 17:42
[2016-11-05] MEDS ORDERED: traMADol-APAP 37.5-325 1 TAB PO PRN (18:00)
[2016-11-05 20:41] VITALS: BP 114/67; RESP 19
[2016-11-06] MEDS: PIPER-TAZO 3.375 GM IV (PMX) 100 ML IVPB SCH ×3 (05:16→23:19)
[2016-11-06 05:30] LABS: POTASSIUM 3.8 mmol/L (3.5-5.1)
[2016-11-06 05:31] LABS: BASOPHILS % 0.3 % (0.0-2.0); EOSINOPHILS # 0.6 10^3/ul (0.0-0.5); EOSINOPHILS % 4.4 % (0.0-7.0); HEMOGLOBIN 11.3 g/dl (12.0-16.0); LYMPHOCYTES % 15.7 % (15.0-51.0); MEAN CORPUSCULAR HGB CONC 33.2 g/dl (32.0-37.0); MEAN CORPUSCULAR VOLUME 81.4 fl (82.0-101.0); MEAN PLATELET VOLUME 7.8 fl (7.4-10.4); MONOCYTES % 7.9 % (0.0-11.0); NEUTROPHIL # 9.1 10^3/ul (1.6-7.5); NEUTROPHILS % 71.7 % (39.0-77.0); PLATELET COUNT 568 10^3/UL (140-440); RED BLOOD COUNT 4.18 10^6/ul (4.20-5.40); RED CELL DISTRIBUTION WIDTH 14.3 % (11.5-14.5); UNCORRECTED WBC 12.7 10^3/ul (4.8-10.8); WHITE BLOOD COUNT 12.7 10^3/ul (4.8-10.8)
[2016-11-06 05:32] LABS: CREATININE 0.78 mg/dl (0.44-1.00)
[2016-11-06 05:33] LABS: CALCIUM 8.7 mg/dl (8.4-10.2)
[2016-11-06 05:36] LABS: CONDITION 1; LH ANALYZER COMMENTS 1
[2016-11-06] MEDS: VANCOMYCIN 1.75 GM in NS 500 ML IVPB SCH ×2 (05:54→17:48)
[2016-11-06] MEDS ORDERED: IOHEXOL 14.3 MG(I)/ML (ADULT) BTL PO ONE (08:30)
[2016-11-06 09:34] VITALS: BP 115/69; RESP 18
--- NOTE | 2016-11-06 14:30 | PN ---
Date/Time of Note Date/Time of Note DATE: 11/06/16 TIME: 14:19 Assessment/Plan VTE Prophylaxis VTE Prophylaxis Intervention: SCD's Lines/Catheters IV Catheter Type (from Nrsg): Peripheral IV Urinary Cath still in place: Yes Reason Cath still needed: other (indicate) Assessment/Plan Assessment/Plan 1. Pelvic fluid collection, probable postop abscess-Improving, on vancomycin and zosyn, CT-guided drainage in am per [employer] ADMINISTRATOR 2.. Endometrial hyperplasia/carcinoma, status post total hysterectomy with bilateral salpingectomy, follow up with [employer] ADMINISTRATOR 3. Sepsis, improving 4. 2.8 cm left soft tissue nodule anterior to the psoas muscle, follow up with [employer] ADMINISTRATOR 5. History of hypertension, controlled without antihypertensive 6. PPx SCD's Subjective 24 Hr Interval Summary Free Text/Dictation afebrile. still has some abdominal pain Exam/Review of Systems Vital Signs Vitals Vital Signs Date Time Temp Pulse Resp B/P Pulse Ox O2 Delivery O2 Flow Rate FiO2 11/06/16 09:34 98.0 89 18 115/69 98 11/05/16 08:57 Room Air Intake and Output 11/05/16 11/05/16 11/06/16 15:00 23:00 07:00 Intake Total 600 ml 2020 ml 500 ml Output Total 2000 ml 2100 ml Balance 600 ml 20 ml -1600 ml Exam Constitutional: alert, oriented, well developed Psych: nl mood/affect, no complaints Head: atraumatic, normocephalic Eyes: EOMI, PERRL, nl conjunctiva, nl lids ENMT: nl external ears & nose, nl lips & teeth, nl nasal mucosa & septum Neck: non-tender, supple Respiratory: clear to auscultation, normal air movement, No congested cough, No crackles/rales, No diminished breath sounds, No intercostal retraction, No labored breathing, No other, No respirations, No tactile fremitus, No wheezing Cardiovascular: nl pulses, regular rate and rhythm, No S3, No S4, No bruits, No diastolic murmur, No edema, No gallop, No irregular rhythm, No jugular venous distention (JVD), No murmurs/extra sounds, No other, No rub, No systolic murmur Gastrointestinal: nl liver, spleen, soft, No ascites, No bowel sounds, No distended, No firm, No hepatomegaly, No mass , No rebound or guarding, No splenomegaly, No surgical scars Musculoskeletal: nl extremities to inspection Extremities: normal pulses, No calf tenderness, No clubbing, No cyanosis, No edema, No other, No palpable cord, No pitting pedal edema, No tenderness Neurological: MECHANICAL EXPERT II-XII intact, nl mental status, nl speech, nl strength Skin: nl turgor, rash or lesions Lymph: nl lymph nodes Results Result Diagram: 11/06/1644911/06/16449 Results 24 hrs Laboratory Tests Test 11/06/16 04:50 Anion Gap 17 H Basophils # 0.0 Basophils % 0.3 Blood Morphology Comment Blood Urea Nitrogen 7 Calcium Level 8.7 Carbon Dioxide Level 27 Chloride Level 107 Creatinine 0.78 Eosinophils # 0.6 H Eosinophils % 4.4 Glucose Level 98 Hematocrit 34.0 L Hemoglobin 11.3 L Lymphocytes # 2.0 Lymphocytes % 15.7 Mean Corpuscular Hemoglobin 27.0 L Mean Corpuscular Hemoglobin Concent 33.2 Mean Corpuscular Volume 81.4 L Mean Platelet Volume 7.8 Monocytes # 1.0 H Monocytes % 7.9 Neutrophils # 9.1 H Neutrophils % 71.7 Nucleated Red Blood Cells # 0.0 Nucleated Red Blood Cells % 0.0 Platelet Count 568 H Potassium Level 3.8 Red Blood Count 4.18 L Red Cell Distribution Width 14.3 Sodium Level 147 H White Blood Count 12.7 H Medications Medications Current Medications Piperacillin Sod/ Tazobactam Sod (Zosyn 3.375gm/ 100 ml (Pmx)) 100 ml @ 200 mls /hr Q8 IVPB Last administered on 11/06/16 14:03; Admin Dose 200 MLS/HR; Start 11/01/16 at 06:00 Acetaminophen 650 mg 650 mg Q6H PRN PO PAIN AND OR ELEVATED TEMP Last administered on 11/05/16 17:04; Admin Dose 650 MG; Start 11/01/16 at 05:00 Vancomycin HCl/ Sodium Chloride (Vancocin/NS) 500 ml @ 125 mls/hr Q12H IVPB Last administered on 11/06/16 05:54; Admin Dose 125 MLS/HR; Start 11/03/16 at 06:00 Tramadol HCl (Ultracet) 1 tab Q6H PRN PO MODERATE PAIN LEVEL 4-6; Start at 18:00 DYLON NEGRON MD Nov 06, 2016 14:30
[2016-11-06 15:58] LABS: INR 1.05; PROTIME 13.7 Sec (12.2-14.2); PT RATIO 1.1
[2016-11-06 15:59] LABS: PARTIAL THROMBOPLASTIN TIME 34.8 Sec (25.0-35.0)
[2016-11-06 20:35] VITALS: BP 109/55; RESP 18
--- NOTE | 2016-11-06 21:20 | PN ---
Date/Time of Note Date/Time of Note DATE: 11/06/16 TIME: 21:18 Assessment/Plan VTE Prophylaxis VTE Prophylaxis Intervention: SCD's Lines/Catheters IV Catheter Type (from Nrsg): Peripheral IV Urinary Cath still in place: Yes Assessment/Plan Chief Complaint/Hosp Course vaginal cuff cellulitis/possible abscess Problems: Assessment/Plan A- significant improvement other than WBC consistent at 11K or higher P- continue to observe and if WBC rises and ordered CT and determine if need to drain collection. CT was not functional so will repeat a.m. Subjective 24 Hr Interval Summary Free Text/Dictation S- feels OK with no pain, + flatus and BM. Some discharge O- Resp- clear CVS- NSR Abd- soft less tender Pelvis- cuff intact and minimally tender Ext- NT no edema A- significant improvement other than WBC consistent at 11K or higher P- continue to observe and if WBC rises and ordered CT and determine if need to drain collection. CT was not functional so will repeat a.m. Exam/Review of Systems Vital Signs Vitals Vital Signs Date Time Temp Pulse Resp B/P Pulse Ox O2 Delivery O2 Flow Rate FiO2 11/06/16 09:34 98.0 89 18 115/69 98 11/05/16 08:57 Room Air Intake and Output 11/05/16 11/05/16 11/06/16 15:00 23:00 07:00 Intake Total 600 ml 2020 ml 500 ml Output Total 2000 ml 2100 ml Balance 600 ml 20 ml -1600 ml Results Result Diagram: 11/06/16 0450 11/06/16 0450 Results 24 hrs Laboratory Tests Test 11/06/16 04:50 11/06/16 15:37 Anion Gap 17 H Basophils # 0.0 Basophils % 0.3 Blood Morphology Comment Blood Urea Nitrogen 7 Calcium Level 8.7 Carbon Dioxide Level 27 Chloride Level 107 Creatinine 0.78 Eosinophils # 0.6 H Eosinophils % 4.4 Glucose Level 98 Hematocrit 34.0 L Hemoglobin 11.3 L Lymphocytes # 2.0 Lymphocytes % 15.7 Mean Corpuscular Hemoglobin 27.0 L Mean Corpuscular Hemoglobin Concent 33.2 Mean Corpuscular Volume 81.4 L Mean Platelet Volume 7.8 Monocytes # 1.0 H Monocytes % 7.9 Neutrophils # 9.1 H Neutrophils % 71.7 Nucleated Red Blood Cells # 0.0 Nucleated Red Blood Cells % 0.0 Platelet Count 568 H Potassium Level 3.8 Red Blood Count 4.18 L Red Cell Distribution Width 14.3 Sodium Level 147 H White Blood Count 12.7 H Activated Partial Thromboplast Time 34.8 INR International Normalized Ratio 1.05 Prothrombin Time 13.7 Prothrombin Time Ratio 1.1 Medications Medications Current Medications Piperacillin Sod/ Tazobactam Sod (Zosyn 3.375gm/ 100 ml (Pmx)) 100 ml @ 200 mls /hr Q8 IVPB Last administered on 11/06/16 14:03; Admin Dose 200 MLS/HR; Start 11/01/16 at 06:00 Acetaminophen 650 mg 650 mg Q6H PRN PO PAIN AND OR ELEVATED TEMP Last administered on 11/05/16 17:04; Admin Dose 650 MG; Start 11/01/16 at 05:00 Vancomycin HCl/ Sodium Chloride (Vancocin/NS) 500 ml @ 125 mls/hr Q12H IVPB Last administered on 11/06/16 17:48; Admin Dose 125 MLS/HR; Start 11/03/16 at 06:00 Tramadol HCl (Ultracet) 1 tab Q6H PRN PO MODERATE PAIN LEVEL 4-6; Start at 18:00 JANETH QUACH MD Nov 06, 2016 21:20
[2016-11-07] MEDS: PIPER-TAZO 3.375 GM IV (PMX) 100 ML IVPB SCH ×2 (05:03→13:08)
[2016-11-07] MEDS: VANCOMYCIN 1.75 GM in NS 500 ML IVPB SCH (05:42)
[2016-11-07 06:23] LABS: POTASSIUM 3.9 mmol/L (3.5-5.1)
[2016-11-07 06:26] LABS: CREATININE 0.89 mg/dl (0.44-1.00)
[2016-11-07 08:00] VITALS: BP 136/62; RESP 18
[2016-11-07 08:03] LABS: BASOPHILS % 0.3 % (0.0-2.0); EOSINOPHILS # 0.5 10^3/ul (0.0-0.5); EOSINOPHILS % 3.6 % (0.0-7.0); HEMATOCRIT 33.5 % (37.0-47.0); HEMOGLOBIN 10.6 g/dl (12.0-16.0); LYMPHOCYTES # 2.1 10^3/ul (0.8-2.9); LYMPHOCYTES % 15.9 % (15.0-51.0); MEAN CORPUSCULAR HEMOGLOBIN 26.4 pg (29.0-33.0); MEAN CORPUSCULAR HGB CONC 31.6 g/dl (32.0-37.0); MEAN CORPUSCULAR VOLUME 83.5 fl (82.0-101.0); MEAN PLATELET VOLUME 9.6 fl (7.4-10.4); MONOCYTES % 7.6 % (0.0-11.0); NEUTROPHIL # 9.6 10^3/ul (1.6-7.5); NEUTROPHILS % 71.6 % (39.0-77.0); PLATELET COUNT 565 10^3/UL (140-415); RED BLOOD COUNT 4.01 10^6/ul (4.20-5.40); RED CELL DISTRIBUTION WIDTH 13.8 % (11.5-14.5); WHITE BLOOD COUNT 13.4 10^3/ul (4.8-10.8)
[2016-11-07] MEDS ORDERED: FENTAnyl 50 MCG/ML VIAL ONE (08:59)
[2016-11-07] MEDS ORDERED: MIDAZOLAM 1 MG/ML 2 ML INJ ONE (08:59)
[2016-11-07] MEDS ORDERED: DIPHENHYDRAMINE 50 MG INJ ONE (08:59)
[2016-11-07] MEDS ORDERED: LIDOCAINE 1% (MDV) 20 ML INJ ONE (08:59)
--- NOTE | 2016-11-07 14:06 | RADRPT ---
PROCEDURE: CT Pelvis without contrast. CLINICAL INDICATION: Pelvic pain. Pelvic fluid collection. TECHNIQUE: CT scan of the pelvis without intravenous contrast was performed. Helical axial section s were obtained through the pelvis without intravenous contrast enhancement. Coronal and sagittal r eformatted images were obtained from the axial source images. Images were reviewed on a high-resolut [employer] PACS workstation. Total exam DLP is unobtainable. CTDIvol is unobtainable. One or more of the following dose reduction techniques were used: Automated exposure control, adjustment of the mA and/ or kV according to patient size, use of iterative reconstruction technique. COMPARISON: 10/31/2016. FINDINGS: The scan was performed with the patient in the prone position for localization of abscess or propose d drainage. There is a Shrestha catheter in the urinary bladder. Previously noted pelvic fluid collection is now much smaller measuring approximately 1.3 x 2.8 cm; p rior was 6.2 x 7.4 cm. Postsurgical changes are noted with previous hysterectomy. There is no free air. The bowel is grossly normal. The osseous structures are unremarkable with no fracture or lytic lesion. IMPRESSION: 1. Previously noted pelvic fluid collection is now much smaller. Abscess drainage was not performe d. Call report: A call report of the findings was made to Dr. Ballesteros on 11/07/2016 at 1015 hours. RPTAT: QQ .Cecil Pickering MD, Date Time Electronically viewed and signed by .Cecil Pickering MD, on 11/07/2016 14:06 .R/
--- NOTE | 2016-11-07 14:26 | PN ---
Date/Time of Note Date/Time of Note DATE: 11/07/16 TIME: 14:22 Assessment/Plan VTE Prophylaxis VTE Prophylaxis Intervention: LMWH Lines/Catheters IV Catheter Type (from Nrs): Saline Lock Urinary Cath still in place: Yes Reason Cath still needed: other (indicate) Assessment/Plan Assessment/Plan 1. Pelvic fluid collection, probable postop abscess-Improving, on vancomycin and zosyn, follow up with [facility] 2.. Endometrial hyperplasia/carcinoma, status post total hysterectomy with bilateral salpingectomy, follow up with [facility] 3. Sepsis, improving 4. 2.8 cm left soft tissue nodule anterior to the psoas muscle, follow up with [facility] 5. History of hypertension, controlled without antihypertensive 6. PPx lovenox Subjective 24 Hr Interval Summary Free Text/Dictation afebrile CT guided abscess drainage was canceled due to fluid collection is too small Exam/Review of Systems Vital Signs Vitals Vital Signs Date Time Temp Pulse Resp B/P Pulse Ox O2 Delivery O2 Flow Rate FiO2 11/07/16 08:00 98.6 63 18 136/62 96 11/05/16 08:57 Room Air Intake and Output 11/06/16 11/06/16 11/07/16 15:00 23:00 07:00 Intake Total 600 ml 1750 ml 750 ml Output Total 1900 ml 2000 ml Balance 600 ml -150 ml -1250 ml Exam Constitutional: alert, oriented, well developed Psych: nl mood/affect, no complaints Head: atraumatic, normocephalic Eyes: EOMI, nl conjunctiva, nl lids ENMT: nl external ears & nose, nl lips & teeth, nl nasal mucosa & septum Neck: non-tender, supple Respiratory: clear to auscultation, normal air movement, No congested cough, No crackles/rales, No diminished breath sounds, No intercostal retraction, No labored breathing, No other, No respirations, No tactile fremitus, No wheezing Cardiovascular: nl pulses, regular rate and rhythm, No S3, No S4, No bruits, No diastolic murmur, No edema, No gallop, No irregular rhythm, No jugular venous distention (JVD), No murmurs/extra sounds, No other, No rub, No systolic murmur Gastrointestinal: nl liver, spleen, soft, No ascites, No bowel sounds, No distended, No firm, No hepatomegaly, No mass , No non-tender, No other, No rebound or guarding, No splenomegaly, No surgical scars Musculoskeletal: nl extremities to inspection Extremities: normal pulses, No calf tenderness, No clubbing, No cyanosis, No edema, No other, No palpable cord, No pitting pedal edema, No tenderness Neurological: THREADER II-XII intact, nl mental status, nl speech, nl strength Skin: nl turgor Results Result Diagram: 11/07/1652511/07/16525 Results 24 hrs Laboratory Tests Test 11/06/16 15:37 11/07/16 05:26 Activated Partial Thromboplast Time 34.8 INR International Normalized Ratio 1.05 Prothrombin Time 13.7 Prothrombin Time Ratio 1.1 Anion Gap 19 H Basophils # 0.0 Basophils % 0.3 Blood Urea Nitrogen 8 Calcium Level 9.0 Carbon Dioxide Level 26 Chloride Level 108 Creatinine 0.89 Eosinophils # 0.5 Eosinophils % 3.6 Glucose Level 97 Hematocrit 33.5 L Hemoglobin 10.6 L Lymphocytes # 2.1 Lymphocytes % 15.9 Mean Corpuscular Hemoglobin 26.4 L Mean Corpuscular Hemoglobin Concent 31.6 L Mean Corpuscular Volume 83.5 Mean Platelet Volume 9.6 # Monocytes # 1.0 H Monocytes % 7.6 Neutrophils # 9.6 H Neutrophils % 71.6 Nucleated Red Blood Cells # 0.0 Nucleated Red Blood Cells % 0.0 Platelet Count 565 #H Potassium Level 3.9 Red Blood Count 4.01 L Red Cell Distribution Width 13.8 Sodium Level 149 H White Blood Count 13.4 H Medications Medications Current Medications Piperacillin Sod/ Tazobactam Sod (Zosyn 3.375gm/ 100 ml (Pmx)) 100 ml @ 200 mls /hr Q8 IVPB Last administered on 11/07/16 13:08; Admin Dose 200 MLS/HR; Start 11/01/16 at 06:00 Acetaminophen 650 mg 650 mg Q6H PRN PO PAIN AND OR ELEVATED TEMP Last administered on 11/05/16 17:04; Admin Dose 650 MG; Start 11/01/16 at 05:00 Vancomycin HCl/ Sodium Chloride (Vancocin/NS) 500 ml @ 125 mls/hr Q12H IVPB Last administered on 11/07/16 05:42; Admin Dose 125 MLS/HR; Start 11/03/16 at 06:00 Tramadol HCl (Ultracet) 1 tab Q6H PRN PO MODERATE PAIN LEVEL 4-6; Start at 18:00 Miscellaneous Information (*Rx Drug Level Order Reminder*) VANCO TROUGH @ 1, 700 ON... ONCE ONCE XX ; Start 11/07/16 at 17:00; Stop 11/07/16 at 17:01 DYLON NEGRON MD Nov 07, 2016 14:26
[2016-11-07] MEDS: ACETAMINOPHEN 325 MG TAB PO PRN (14:36)
[2016-11-07] MEDS: ENOXAPARIN 40 MG/0.4 ML SYG SC SCH (14:41)
[2016-11-07 15:44] LABS: ADD UMIC YES; URINE BILIRUBIN (Dip) NEGATIVE (NEGATIVE); URINE BLOOD (Dip) 3+ (NEGATIVE); URINE COLOR LT. YELLOW (YELLOW); URINE GLUCOSE (Dip) NEGATIVE (NEGATIVE); URINE KETONES (Dip) NEGATIVE (NEGATIVE); URINE LEUKOCYTE ESTERASE (Dip) NEGATIVE (NEGATIVE); URINE NITRITE (Dip) NEGATIVE (NEGATIVE); URINE TOTAL PROTEIN (Dip) NEGATIVE (NEGATIVE); URINE UROBILINOGEN (Dip) 0.2 E.U./dL (0.1-1.0)
[2016-11-07 16:19] LABS: BACTERIA,URINE RARE; SQUAMOUS EPITHELIAL CELL,UR FEW
--- NOTE | 2016-11-07 17:56 | PN ---
Date/Time of Note Date/Time of Note DATE: 11/07/16 TIME: 17:53 Assessment/Plan VTE Prophylaxis VTE Prophylaxis Intervention: SCD's Lines/Catheters IV Catheter Type (from Nrs): Saline Lock Urinary Cath still in place: Yes Assessment/Plan Chief Complaint/Hosp Course vaginal cuff cellulitis/possible abscess Problems: Assessment/Plan A- significant improvement other than WBC consistent at 11K or higher P- Given that slightly elevated WBC often seen with Vanco and no drainable collection will change to Levaquin and Flagyl and possibly discharge a.m. Subjective 24 Hr Interval Summary Free Text/Dictation S- feels OK with no pain, + flatus and BM. Aware no collection O- Resp- clear CVS- NSR Abd- soft less tender Pelvis- cuff intact and minimally tender Ext- NT no edema A- significant improvement other than WBC consistent at 11K or higher P- Given that slightly elevated WBC often seen with Vanco and no drainable collection will change to Levaquin and Flagyl and possibly discharge a.m. Exam/Review of Systems Vital Signs Vitals Vital Signs Date Time Temp Pulse Resp B/P Pulse Ox O2 Delivery O2 Flow Rate FiO2 11/07/16 08:00 98.6 63 18 136/62 96 11/05/16 08:57 Room Air Intake and Output 11/06/16 11/06/16 11/07/16 15:00 23:00 07:00 Intake Total 600 ml 1750 ml 750 ml Output Total 1900 ml 2000 ml Balance 600 ml -150 ml -1250 ml Results Result Diagram: 11/07/16 0526 11/07/16 0526 Results 24 hrs Laboratory Tests Test 11/07/16 05:26 11/07/16 15:28 Anion Gap 19 H Basophils # 0.0 Basophils % 0.3 Blood Urea Nitrogen 8 Calcium Level 9.0 Carbon Dioxide Level 26 Chloride Level 108 Creatinine 0.89 Eosinophils # 0.5 Eosinophils % 3.6 Glucose Level 97 Hematocrit 33.5 L Hemoglobin 10.6 L Lymphocytes # 2.1 Lymphocytes % 15.9 Mean Corpuscular Hemoglobin 26.4 L Mean Corpuscular Hemoglobin Concent 31.6 L Mean Corpuscular Volume 83.5 Mean Platelet Volume 9.6 # Monocytes # 1.0 H Monocytes % 7.6 Neutrophils # 9.6 H Neutrophils % 71.6 Nucleated Red Blood Cells # 0.0 Nucleated Red Blood Cells % 0.0 Platelet Count 565 #H Potassium Level 3.9 Red Blood Count 4.01 L Red Cell Distribution Width 13.8 Sodium Level 149 H White Blood Count 13.4 H Urine Bacteria RARE Urine Bilirubin NEGATIVE Urine Clarity CLEAR Urine Color LT. YELLOW Urine Glucose NEGATIVE Urine Hemoglobin 3+ H Urine Ketones NEGATIVE Urine Leukocyte Esterase NEGATIVE Urine Microscopic RBC 10-25 Urine Microscopic WBC 0-2 Urine Nitrite NEGATIVE Urine Specific [place] 1.010 Urine Squamous Epithelial Cells FEW Urine Total Protein NEGATIVE Urine Urobilinogen 0.2 E.U./dL Urine pH 6.0 Medications Medications Current Medications Piperacillin Sod/ Tazobactam Sod (Zosyn 3.375gm/ 100 ml (Pmx)) 100 ml @ 200 mls /hr Q8 IVPB Last administered on 11/07/16 13:08; Admin Dose 200 MLS/HR; Start 11/01/16 at 06:00 Acetaminophen 650 mg 650 mg Q6H PRN PO PAIN AND OR ELEVATED TEMP Last administered on 11/07/16 14:36; Admin Dose 650 MG; Start 11/01/16 at 05:00 Vancomycin HCl/ Sodium Chloride (Vancocin/NS) 500 ml @ 125 mls/hr Q12H IVPB Last administered on 11/07/16 05:42; Admin Dose 125 MLS/HR; Start 11/03/16 at 06:00 Tramadol HCl (Ultracet) 1 tab Q6H PRN PO MODERATE PAIN LEVEL 4-6; Start at 18:00 Enoxaparin Sodium (Lovenox) 40 mg DAILY SC Last administered on 11/07/16 14:41 ; Admin Dose 40 MG; Start 11/07/16 at 15:00 JANETH QUACH MD Nov 07, 2016 17:56
[2016-11-07] MEDS: metroNIDAZOLE 500 MG TAB PO SCH ×2 (18:55→21:21)
[2016-11-07] MEDS: LEVOFLOXACIN 750 MG TABLET NGT SCH (18:55)
[2016-11-07 20:10] VITALS: BP 142/82; RESP 18
[2016-11-08] MEDS: metroNIDAZOLE 500 MG TAB PO SCH ×2 (05:32→14:04)
[2016-11-08 05:50] LABS: ADD SCAN DIFF NO
[2016-11-08 06:04] LABS: BASOPHILS % 0.2 % (0.0-2.0); EOSINOPHILS # 0.4 10^3/ul (0.0-0.5); EOSINOPHILS % 3.5 % (0.0-7.0); HEMOGLOBIN 10.5 g/dl (12.0-16.0); LYMPHOCYTES # 2.1 10^3/ul (0.8-2.9); LYMPHOCYTES % 17.1 % (15.0-51.0); MEAN CORPUSCULAR HEMOGLOBIN 26.2 pg (29.0-33.0); MEAN CORPUSCULAR HGB CONC 31.8 g/dl (32.0-37.0); MEAN CORPUSCULAR VOLUME 82.3 fl (82.0-101.0); MEAN PLATELET VOLUME 9.4 fl (7.4-10.4); MONOCYTES % 7.9 % (0.0-11.0); NEUTROPHIL # 8.6 10^3/ul (1.6-7.5); NEUTROPHILS % 70.4 % (39.0-77.0); PLATELET COUNT 592 10^3/UL (140-415); RED BLOOD COUNT 4.01 10^6/ul (4.20-5.40); RED CELL DISTRIBUTION WIDTH 13.5 % (11.5-14.5); WHITE BLOOD COUNT 12.2 10^3/ul (4.8-10.8)
[2016-11-08 06:17] LABS: CREATININE 0.86 mg/dl (0.44-1.00)
[2016-11-08 07:50] VITALS: BP 124/71; RESP 18
[2016-11-08 08:00] VITALS: BP 126/64; RESP 18
--- NOTE | 2016-11-08 08:02 | CONS ---
DATE OF ADMISSION: 10/31/2016 DATE OF CONSULTATION: 11/01/2016 TYPE OF CONSULTATION: Infectious Disease. REASON FOR CONSULTATION: Antibiotic management. HISTORY OF PRESENT ILLNESS: Kyra Noriega is a 36-year-old female who comes in with a fever and abd ominal pain. Past problems include: 1. Hypertension. 2. Dyslipidemia. 3. Endometrial hyperplasia. 4. Colon carcinoma, status post laparoscopic total hysterectomy with bilateral goal salpingo-oophor ectomy. She came to the emergency room with possible postoperative abscess and evaluation of abdominal pain and fever. Patient recently had a laparoscopic total hysterectomy with bilateral salpingectomy, ure terolysis and lymph node dissection. In the emergency room, a CT scan of the abdomen and pelvis was done, which showed a fluid collection in the pelvis, indicative of postop abscess. On physical exam ination, Kash are intact. There are no signs of active infection. On admission, her white count was 12.3, now it is 13.4; H and H of 10.6/33.5; platelet count of 565,000. BUN and creatinine are 8/0.89. Urine is negative for nitrite and leukocyte esterase, 0 to 2 white cells per high-power fie ld. Urine is negative. Blood cultures are negative. A CT scan of the pelvis done on the show s: Scan was performed with patient in the prone position for localization of abscess. Previously n oted pelvic collection is now smaller, measuring 1.3 x 2.8; prior, was 6.2 x 7.4. Postsurgical toure ges are noted with previous hysterectomy. Abscess drainage was not performed. A CT scan of the abd omen and pelvis, when she came in, as noted, had a larger fluid collection; either infected seroma a bscess or hematoma. A chest x-ray and thorax CT angiogram showed no evidence of large or central pu lmonary emboli; no aortic aneurysm or dissection. Lungs clear. 2.3-cm left lower pole thyroid nodu le. Cultures are negative. The patient was started on vancomycin and Zosyn. PAST MEDICAL HISTORY: Operations, as outlined. FAMILY HISTORY: Noncontributory. SOCIAL HISTORY: She does not smoke, drink or abuse drugs. ALLERGIES: NONE TO PENICILLIN, SULFA OR FOODS. MEDICATIONS: Per chart. REVIEW OF SYSTEMS: As per HPI. PHYSICAL EXAMINATION GENERAL: The patient is a well-developed, well-nourished female, alert, responsive, in no acute dis tress. VITAL SIGNS: Stable. She is afebrile. SKIN: Without generalized rash. HEENT: Within normal limits. NECK: Supple. LYMPHATIC: Lymph nodes: None palpable. CHEST: Decreased breath sounds at the bases. HEART: Without murmur or gallop. ABDOMEN: Soft, nontender. Kash are intact. There is no organosplenomegaly or masses. RECTAL: Deferred. GENITAL: Deferred. She has a Shrestha catheter in place. She has vaginal cellulitis, possible absces s. She has significant improvement, according to doctor Lamin. NEUROLOGIC: No focal neurological abnormality. IMPRESSION AND PLAN: Continue to observe and if white count rises and CT scan shows increased fluid collection, it should be drained. The CT-guided abscess drainage was canceled due to fluid collect ion being too small today. We will continue her on vancomycin and Zosyn. Dictated By: JACKELINE DELAROSA MD, JD/IDALMIS Conf#: [id number] DID#: [id number]
[2016-11-08] MEDS: ENOXAPARIN 40 MG/0.4 ML SYG SC SCH (09:04)
[2016-11-08] MEDS: LEVOFLOXACIN 750 MG TABLET NGT SCH (09:05)
--- NOTE | 2016-11-08 09:59 | PN ---
Date/Time of Note Date/Time of Note DATE: 11/08/16 TIME: 09:56 Assessment/Plan VTE Prophylaxis VTE Prophylaxis Intervention: SCD's Lines/Catheters IV Catheter Type (from Nrs): Saline Lock Urinary Cath still in place: Yes Assessment/Plan Chief Complaint/Hosp Course vaginal cuff cellulitis/possible abscess Problems: Subjective 24 Hr Interval Summary Free Text/Dictation Ambulatory and feels better. No pain Given that WBC going down and feels even better and nothing to drain will discharge and continue oral Levaquin and Flagyl at home. Patient informed prescriptions called. Exam/Review of Systems Vital Signs Vitals Vital Signs Date Time Temp Pulse Resp B/P Pulse Ox O2 Delivery O2 Flow Rate FiO2 11/08/16 08:00 98.4 72 18 126/64 96 11/05/16 08:57 Room Air Intake and Output 11/07/16 11/07/16 11/08/16 15:00 23:00 07:00 Intake Total 600 ml 1440 ml 950 ml Output Total 2200 ml 1600 ml Balance 600 ml -760 ml -650 ml Results Result Diagram: 11/08/16 0531 11/08/16 0535 Results 24 hrs Laboratory Tests Test 11/07/16 15:28 11/07/16 17:30 11/08/16 05:31 11/08/16 05:35 Urine Bacteria RARE Urine Bilirubin NEGATIVE Urine Clarity CLEAR Urine Color LT. YELLOW Urine Glucose NEGATIVE Urine Hemoglobin 3+ H Urine Ketones NEGATIVE Urine Leukocyte Esterase NEGATIVE Urine Microscopic RBC 10-25 Urine Microscopic WBC 0-2 Urine Nitrite NEGATIVE Urine Specific [place] 1.010 Urine Squamous Epithelial Cells FEW Urine Total Protein NEGATIVE Urine Urobilinogen 0.2 E.U./dL Urine pH 6.0 Vancomycin Level Trough 16.3 Basophils # 0.0 Basophils % 0.2 Eosinophils # 0.4 Eosinophils % 3.5 Hematocrit 33.0 L Hemoglobin 10.5 L Lymphocytes # 2.1 Lymphocytes % 17.1 Mean Corpuscular Hemoglobin 26.2 L Mean Corpuscular Hemoglobin Concent 31.8 L Mean Corpuscular Volume 82.3 Mean Platelet Volume 9.4 Monocytes # 1.0 H Monocytes % 7.9 Neutrophils # 8.6 H Neutrophils % 70.4 Nucleated Red Blood Cells # 0.0 Nucleated Red Blood Cells % 0.0 Platelet Count 592 H Red Blood Count 4.01 L Red Cell Distribution Width 13.5 White Blood Count 12.2 H Blood Urea Nitrogen 9 Creatinine 0.86 Medications Medications Current Medications Acetaminophen (Tylenol Tab) 650 mg Q6H PRN PO PAIN AND OR ELEVATED TEMP Last administered on 11/07/16 14:36; Admin Dose 650 MG; Start 11/01/16 at 05:00 Tramadol HCl (Ultracet) 1 tab Q6H PRN PO MODERATE PAIN LEVEL 4-6; Start at 18:00 Enoxaparin Sodium (Lovenox) 40 mg DAILY SC Last administered on 11/08/16 09:04 ; Admin Dose 40 MG; Start 11/07/16 at 15:00 Levofloxacin (Levaquin) 750 mg DAILY NGT Last administered on 11/08/16 09:05; Admin Dose 750 MG; Start 11/07/16 at 18:00 Metronidazole (Flagyl) 500 mg Q8 PO Last administered on 11/08/16 05:32; Admin Dose 500 MG; Start 11/07/16 at 18:00 JANETH QUACH MD Nov 08, 2016 09:59
[2016-11-08] MEDS ORDERED: SIMV5TAB50 PO (10:05)
[2016-11-08] MEDS ORDERED: LISI10TA2 PO (10:05)
--- NOTE | 2016-11-08 13:56 | PN ---
DATE: 11/08/2016 SUBJECTIVE: Patient is alert, lying comfortably in bed, feels good, looks comfortable, no fevers. WBC today 12.2, platelets 592, no shift. BUN 9, creatinine 0.86. ANTIMICROBIALS: She is on Levaquin and Flagyl p.o. PHYSICAL EXAMINATION: GENERAL: Morbidly obese, middle-aged [place] woman who is lying comfortably in bed. HEENT: Head atraumatic, normocephalic. Sclerae anicteric. Buccal mucosa pink. NECK: Supple. Trachea midline. CHEST: Rise symmetrical. Breath sounds clear. HEART: S1, S2. ABDOMEN: Soft. Bowel tones present. EXTREMITIES: Without cyanosis. ASSESSMENT: 1. Abdominal pain is resolving. 2. History of endometrial carcinoma, status post laparoscopic total hysterectomy with bilateral yuridia pingectomy on 10/26/2016. 3. Vaginal cuff cellulitis, possible abscess, improving. 4. Obesity. 5. Hypertension. PLAN: The patient is doing better, overall improving, on appropriate antimicrobials. She is being followed by multiple consultants. We will continue her on current regimen and anticipate dischargi ng her on above antibiotics to complete treatment. Dictated By: RAPHAEL LANG RESEARCH INSTRUCTOR for JACKELINE [place]/IDALMIS Conf#: [id number] DID#: [id number]
[2016-11-08] MEDS ORDERED: LEVO500T72 PO (15:07)
[2016-11-08] MEDS ORDERED: METR500T PO (15:07)
--- NOTE | 2016-11-08 15:31 | DS ---
Date/Time of Note Date/Time of Note DATE: 11/08/16 TIME: 15:27 Discharge Summary Admission/Discharge Info Admit Date/Time Oct 31, 2016 at 22:15 Discharge Date/Time Final Diagnosis 1. Pelvic abscess, improving, continue levaquin and flagyl 2.. Endometrial hyperplasia/carcinoma, status post total hysterectomy with bilateral salpingectomy, follow up with [facility] 3. Sepsis, improved 4. History of hypertension, controlled without antihypertensive 5. Dyslipidemia, on statin Patient Condition: Stable Hospital Course 1. Sepsis 2/2 Probable postop abscess-Improving -cont Abx, FU with Automated Equipment Engineer Technician recs 2.. Endometrial hyperplasia/carcinoma, status post total hysterectomy with bilateral salpingectomy 3. History of hypertension- currently low -Hold Rx PPx SCD's Home Meds Active Scripts Metronidazole* (Flagyl*) 500 Mg Tablet, 500 MG PO Q8 for 14 Days, TAB Prov:DYLON NEGRON MD 11/08/16 Levofloxacin* (Levaquin*) 500 Mg Tablet, 500 MG PO DAILY for 14 Days, TAB Prov:DYLON NEGRON MD 11/08/16 Reported Medications Simvastatin* (Simvastatin*) 5 Mg Tablet, 20 MG PO QHS, #30 TAB 10/24/16 Lisinopril* (Lisinopril*) 10 Mg Tablet, 10 MG PO DAILY, #30 TAB 10/24/16 Follow-up Plan Follow up with Dr. Kimble Pending Labs Laboratory Tests Test 11/07/16 15:28 11/07/16 17:30 11/08/16 05:31 11/08/16 05:35 Urine Bacteria RARE Urine Bilirubin NEGATIVE (NEGATIVE) Urine Clarity CLEAR (CLEAR) Urine Color LT. YELLOW (YELLOW) Urine Glucose NEGATIVE% (NEGATIVE) Urine Hemoglobin 3+ (NEGATIVE) Urine Ketones NEGATIVE (NEGATIVE) Urine Leukocyte Esterase NEGATIVE (NEGATIVE) Urine Microscopic RBC 10-25/HPF (0) Urine Microscopic WBC 0-2/HPF (0) Urine Nitrite NEGATIVE (NEGATIVE) Urine Specific [place] 1.010 (1.003-1.030) Urine Squamous Epithelial Cells FEW Urine Total Protein NEGATIVE (NEGATIVE) Urine Urobilinogen 0.2 E.U./dL (0.1-1.0) Urine pH 6.0 (5.0-9.0) Vancomycin Level Trough 16.3ug/ml (10.0-20.0) Basophils # 0.010^3/ul (0.0-0.1) Basophils % 0.2% (0.0-2.0) Eosinophils # 0.410^3/ul (0.0-0.5) Eosinophils % 3.5% (0.0-7.0) Hematocrit 33.0% (37.0-47.0) Hemoglobin 10.5g/dl (12.0-16.0) Lymphocytes # 2.110^3/ul (0.8-2.9) Lymphocytes % 17.1% (15.0-51.0) Mean Corpuscular Hemoglobin 26.2pg (29.0-33.0) Mean Corpuscular Hemoglobin Concent 31.8g/dl (32.0-37.0) Mean Corpuscular Volume 82.3fl (82.0-101.0) Mean Platelet Volume 9.4fl (7.4-10.4) Monocytes # 1.010^3/ul (0.3-0.9) Monocytes % 7.9% (0.0-11.0) Neutrophils # 8.610^3/ul (1.6-7.5) Neutrophils % 70.4% (39.0-77.0) Nucleated Red Blood Cells # 0.010^3/ul (0.0-0.0) Nucleated Red Blood Cells % 0.0/100WBC (0.0-0.0) Platelet Count 52966^3/UL (140-415) Red Blood Count 4.0110^6/ul (4.20-5.40) Red Cell Distribution Width 13.5% (11.5-14.5) White Blood Count 12.210^3/ul (4.8-10.8) Blood Urea Nitrogen 9mg/dl (7-20) Creatinine 0.86mg/dl (0.44-1.00) DYLON NEGRON MD Nov 08, 2016 15:31
[2016-11-08] MEDS ORDERED: ZOC20 PO (16:00)
[2016-11-08] MEDS ORDERED: ATORVASTATIN 10 MG TAB PO SCH (21:00)
== END 2016-11-08 17:20 | disposition home or self-care (01) | DRG 872 ==
LOC: FTE 17:27 → PP2 22:15
PROVIDERS: ADMIT Internal Medicine; ATTEND Internal Medicine
DX: A41.9 Sepsis, unspecified organism (principal); T81.4XXA Infection following a procedure, initial encounter; N73.9 Female pelvic inflammatory disease, unspecified; E78.5 Hyperlipidemia, unspecified; Z90.710 Acquired absence of both cervix and uterus; C54.1 Malignant neoplasm of endometrium; R50.9 Fever, unspecified; R22.9 Localized swelling, mass and lump, unspecified
CPT/HCPCS: 36415; 71010; 71275; 72192; 74177; 80048; 80053; 80202; 81001; 81003; 82565; 83605; 83690; 83735; 84100; 84520; 85025; 85610; 85730; 87040; 87086; 96365; 96375; J1200; J1650; J2250; J2543; J3010; J3370; J7030; J7040; J7050; Q9967